=== PATIENT | male | born 1950 | race Caucasian/White ===

== ENCOUNTER 2017-06-06 17:51 | Inpatient (IN) ==
[2017-06-06] MEDS ORDERED: 0.9 % Sodium Chloride 1,000 ML IVC ONE (17:56)
[2017-06-06 18:27] LABS: Hematocrit 27.6 % (37.5-50.1); Hemoglobin 8.6 g/dL (12.9-16.9); Immature Granulocytes % 1.2 % (0-4); Lymphocytes # 0.4 K/mcL (0.6-4.6); Lymphocytes % 3.4 %; Mean Corpuscular HGB Conc 31.2 g/dL (31.6-35.5); Mean Corpuscular Hemoglobin 30.6 pg (28.0-33.3); Mean Corpuscular Volume 98.2 fL (83.0-100.0); Mean Platelet Volume 10.2 fL (9.4-12.4); Monocytes # 0.1 K/mcL (0.0-1.3); Monocytes % 1.2 %; Neutrophils # 10.6 K/mcL (1.6-8.9); Platelet Count 175 K/mcL (140-400); Red Blood Count 2.81 M/mcL (4.19-5.50); Red Cell Distribution Width 14.1 % (11.5-14.5); Segmented Neutrophils % 94.2 %
--- NOTE | 2017-06-06 18:28 | Emergency Department Note ---
Disposition Clinical Impression: Rectal bleeding, Colitis Syncope Qualifiers: Syncope type: unspecified Qualified Code(s): R55 - Syncope and collapse Anemia Qualifiers: Anemia type: unspecified type Qualified Code(s): D64.9 - Anemia, unspecified Disposition: Admitted As Inpatient Condition: Critical Time of Disposition: 19:12 Syncope HPI - General Chief Complaint: ED Syncope Stated Complaint: syncope Time Seen by Provider: 06/06/17 17:52 Source: patient, family Mode of arrival: EMS Limitations: no limitations Nursing Notes Reviewed: Yes Vital Signs Reviewed: Yes - History of Present Illness HPI Narrative: The year-old male with history of ulcerative colitis and atrial fibrillation, arrives [facility] emergency department after having multiple syncopal episodes just prior to arrival to the emergency department. The patient states he has been experiencing multiple episodes of bloody stools and a large amount of blood that came from his rectum earlier today. The patient states that earlier he felt very shaky and weak and had a syncopal episode. The patient did not fall but did not lose consciousness. The patient called EMS at that time for evaluation and EMS noted that when they were transporting the patient to the ambulance he had another episode of syncope. The patient had no seizure-like activity that time and did not urinate on himself and did not bite his tongue. The patient did have some small twitching which is consistent with syncope per EMS. The patient denies any previous history of any episode like this in the past. The patient denies any complaints at this time other than feeling generalized weakness and the bleeding from his rectum. Was initially hypotensive with a systolic in the low 90s. After 1 L fluid his systolic fide to the 130s upon arrival to the emergency department. The patient's heart rate remained in the 60s during the entire encounter. 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 Number of episodes: 2 Duration: second(s) Prodromal Symptoms: lightheaded Witnessed: yes - by other (Family) Context: at rest Injuries Sustained Associated with Event: none Current Symptoms: none History: none Treatments prior to arrival: IV fluids Associated trauma secondary to event: No - Related Data Home Medications Medication Instructions Recorded Confirmed Aspirin Enteric Coated [Aspirin EC] 81 mg PO DAILY 04/12/16 06/06/17 Escitalopram [Lexapro] 20 mg PO DAILY 04/12/16 06/06/17 Simvastatin [Zocor] 10 mg PO HS 04/12/16 06/06/17 clonazePAM [Klonopin] 1 mg PO QID PRN 04/12/16 06/06/17 predniSONE [PredniSONE] 20 mg PO DAILY 05/27/16 06/06/17 Levothyroxine [Synthroid] 25 mcg PO 0630 06/06/17 06/06/17 Mirtazapine [Remeron] 45 mg PO HS 06/06/17 06/06/17 Previous Rx's Medication Instructions Recorded Amiodarone [Cordarone] 200 mg PO DAILY #30 tablet 05/29/16 Allergies Allergy/AdvReac Type Severity Reaction Status Date / Time No Known Allergies Allergy Verified 05/26/16 20:50 All systems ED: reviewed and negative except as stated. Constitutional: Denies: fever, chills, weakness, weight change Eyes: Denies: eye pain, eye discharge, vision change Cardiovascular: Denies: chest pain, palpitations, dyspnea on exertion, edema, syncope Respiratory: Denies: cough, dyspnea, wheezes, hemoptysis, stridor Gastrointestinal: Reports: hematochezia. Denies: abdominal pain, nausea, vomiting, diarrhea, constipation, hematemesis, melena Genitourinary: Denies: urgency, dysuria, frequency, hematuria Musculoskeletal: Denies: back pain, neck pain, arthralgia, myalgia Integumentary: Denies: rash, abrasion, lesions Neurological: Denies: headache, weakness, numbness, paresthesias, confusion, abnormal gait, vertigo Past Medical History - Past Medical History Attestation: Yes The following information was validated with the patient. Source: patient Medical history: Reports: arthritis, atrial fibrillation, GERD, hyperlipidemia, hypertension, kidney stones, osteoporosis, renal disease, other Surgical history: Reports: arthroscopy, herniorrhaphy, orthopedic, other, other Psychiatric history: Reports: anxiety, depression, other - Social History Smoking Status: Never smoker Smokeless Tobacco Status: No Alcohol use: Reports: none Drug use: Reports: none Physical Exam - General Limitations: no limitations General appearance: alert, in no apparent distress - Head Head exam: normocephalic, normal inspection, other (She has multiple abrasions on his face and left side of his face which she states is not new today and states is from working outside yesterday.) - Eye Eye exam: Present: normal appearance, PERRL, EOMI - ENT ENT exam: normal exam, normal oropharynx, mucous membranes moist - Neck Neck exam: Present: normal inspection, full ROM, trachea midline - Chest Chest inspection: Present: normal inspection, symmetric chest wall rise - Respiratory Respiratory exam: Present: normal lung sounds bilaterally - Cardiovascular Cardiovascular exam: Present: regular rate, normal rhythm, normal heart sounds - Abdominal Exam Abdominal exam: Present: soft, Non-Tender. Absent: tenderness, distention, guarding, rebound, rigidity - Extremities Exam Extremities exam: Present: normal inspection, full ROM. Absent: tenderness, pedal edema - Neurological Exam Neurological exam: Present: alert, oriented X3, CN II-XII intact. Absent: motor sensory deficit - Skin Skin exam: Present: warm, dry, intact, normal color Course - Consultations Consultation #1: We spoke with Dr. Packer in surgery/endoscopy who agreed to see the patient. No further Recommendations given at this time. Time: 19:10 Vital Signs Pulse Rate 65 06/06/17 17:53 Respiratory Rate 16 06/06/17 17:53 Blood Pressure 117/66 06/06/17 17:53 O2 Sat by Pulse Oximetry 100 06/06/17 17:53 Temperature 98.2 F 06/07/17 08:47 Pulse Rate 57 06/07/17 08:47 Respiratory Rate 18 06/07/17 08:47 Blood Pressure 114/73 06/07/17 08:47 O2 Sat by Pulse Oximetry 99 06/07/17 08:32 Oxygen Delivery Oxygen Delivery Room Air Syncope - [facility] Narrative Medical decision making narrative: Patient experiencing large amount of red blood around his rectum. With the patient's hypotension and syncope, we elected to perform a blood transfusion at this time. The patient has received 2 L of IV fluids. We spoke with Dr. Packer and endoscopy/surgery will see the patient. After discussing the patient's history and story, we will admit the patient to the ICU. Accepted by Rashi Sánchez NP. Patient agrees to plan. - Lab Data Lab results reviewed: Yes I reviewed the patient's lab results. Result diagrams: 06/07/17 05:29 06/07/17 04:03 Lab Results 09/25/17 09/25/17 09/25/17 Range/Units 18:17 18:17 18:17 WBC 11.3 H (4.3-11.1) K/mcL RBC 2.81 L (4.19-5.50) M/mcL Hgb 8.6 L (12.9-16.9) g/dL Hct 27.6 L (37.5-50.1) % MCV 98.2 (83.0-100.0) fL MCH 30.6 (28.0-33.3) pg MCHC 31.2 L (31.6-35.5) g/dL RDW 14.1 (11.5-14.5) % Plt Count 175 (140-400) K/mcL MPV 10.2 (9.4-12.4) fL Immature Gran % 1.2 (0-4) % Seg Neutrophils % 94.2 % Lymphocytes % 3.4 % Monocytes % 1.2 % Eosinophils % 0.0 % Basophils % 0.0 % Neutrophils # 10.6 H (1.6-8.9) K/mcL Lymphocytes # 0.4 L (0.6-4.6) K/mcL Monocytes # 0.1 (0.0-1.3) K/mcL Eosinophils # 0.0 (0.0-0.6) K/mcL Basophils # 0.0 (0.0-0.2) K/mcL PT (9.4-12.1) Seconds INR APTT (26.0-36.0) Seconds Sodium 139 (136-145) mEq/L Potassium 5.1 H (3.5-4.5) mEq/L Chloride 109 (98-109) mEq/L Carbon Dioxide 23 (19-29) mEq/L BUN 47 H (8-26) mg/dL Creatinine 2.98 H (0.72-1.25) mg/dL Est GFR ( Amer) 26 L (> 60) Est GFR (Non-Af Amer) 21 L (> 60) BUN/Creatinine Ratio 16 (6-26) Glucose 183 H (70-99) mg/dL Calculated Osmolality 305 H (280-300) Calcium 7.9 L (8.6-10.8) mg/dL Total Bilirubin 0.5 (0.2-1.2) mg/dL AST 13 (5-34) Units/L ALT 15 (0-55) Units/L Alkaline Phosphatase 37 L (38-126) Units/L Troponin I 0.01 (0-0.03) ng/mL Serum Total Protein 4.7 L (6.0-8.3) g/dL Albumin 2.8 L (3.5-5.0) g/dL Globulin 1.9 L (2.4-3.5) g/dL Albumin/Globulin Ratio 1.5 (1.1-2.2) Urine Color (Yellow) Urine Clarity (Clear) Urine pH (5.0-8.0) pH Units Ur Specific [place] (1.010-1.025) Urine Protein (Neg-Trace) mg/dL Urine Glucose (UA) (Normal) mg/dL Urine Ketones (Negative) mg/dL Urine Blood (Negative) Urine Nitrite (Negative) Urine Bilirubin (Negative) Urine Urobilinogen (Normal) mg/dL Ur Leukocyte Esterase (Negative) Ur Squamous Epith Cells (None-Few) per lpf Ur Culture Indicated? (NO) Blood Type Antibody Screen Crossmatch 06/06/17 06/06/17 06/06/17 Range/Units 18:17 18:35 18:53 WBC (4.3-11.1) K/mcL RBC (4.19-5.50) M/mcL Hgb (12.9-16.9) g/dL Hct (37.5-50.1) % MCV (83.0-100.0) fL MCH (28.0-33.3) pg MCHC (31.6-35.5) g/dL RDW (11.5-14.5) % Plt Count (140-400) K/mcL MPV (9.4-12.4) fL Immature Gran % (0-4) % Seg Neutrophils % % Lymphocytes % % Monocytes % % Eosinophils % % Basophils % % Neutrophils # (1.6-8.9) K/mcL Lymphocytes # (0.6-4.6) K/mcL Monocytes # (0.0-1.3) K/mcL Eosinophils # (0.0-0.6) K/mcL Basophils # (0.0-0.2) K/mcL PT 10.9 (9.4-12.1) Seconds INR 1.0 APTT 21.5 L (26.0-36.0) Seconds Sodium (136-145) mEq/L Potassium (3.5-4.5) mEq/L Chloride (98-109) mEq/L Carbon Dioxide (19-29) mEq/L BUN (8-26) mg/dL Creatinine (0.72-1.25) mg/dL Est GFR ( Amer) (> 60) Est GFR (Non-Af Amer) (> 60) BUN/Creatinine Ratio (6-26) Glucose (70-99) mg/dL Calculated Osmolality (280-300) Calcium (8.6-10.8) mg/dL Total Bilirubin (0.2-1.2) mg/dL AST (5-34) Units/L ALT (0-55) Units/L Alkaline Phosphatase (38-126) Units/L Troponin I (0-0.03) ng/mL Serum Total Protein (6.0-8.3) g/dL Albumin (3.5-5.0) g/dL Globulin (2.4-3.5) g/dL Albumin/Globulin Ratio (1.1-2.2) Urine Color Yellow (Yellow) Urine Clarity Clear (Clear) Urine pH 6.0 (5.0-8.0) pH Units Ur Specific [place] 1.020 (1.010-1.025) Urine Protein 30 H (Neg-Trace) mg/dL Urine Glucose (UA) 100 H (Normal) mg/dL Urine Ketones Negative (Negative) mg/dL Urine Blood Negative (Negative) Urine Nitrite Negative (Negative) Urine Bilirubin Negative (Negative) Urine Urobilinogen Normal (Normal) mg/dL Ur Leukocyte Esterase Negative (Negative) Ur Squamous Epith Cells Few (None-Few) per lpf Ur Culture Indicated? NO (NO) Blood Type O POSITIVE Antibody Screen NEGATIVE Crossmatch See Detail - EKG Data EKG attestation: Yes I reviewed and interpreted this EKG. EKG results narrative: Rate 61 bpm. WA interval 135 ms. QTc 431 ms. Normal axis. Normal sinus rhythm. No ST elevation or ST depression noted. Attestation Statement - Attestation Attestation: I, Eduardo Diego, examined this patient and my medical decision-making was reviewed with the SERVICE BAR CASHIER/PA/Advanced Practice Nurse/Resident Physician. I agree with the documented findings, disposition and treatment plan as described except to the extent set forth below. 67-year-old male presents to emergency department after a syncopal episode. Patient reports multiple episodes of rectal bleeding. She states she feels weak and fatigued. Denies chest pain or shortness breath. Patient had bright red blood on sheets of emergency department bed. CT scan of the abdomen shows stranding adjacent to the colon and this will be treated as possible colitis. Resident spoke with the endoscopist, Dr. Baker, who agreed with the plan for admission to the ICU and will likely perform a colonoscopy in the morning. Vital signs are stable prior to admission to the hospital.
[2017-06-06 18:37] LABS: Albumin 2.8 g/dL (3.5-5.0); Albumin/Globulin Ratio 1.5 (1.1-2.2); Bilirubin,Total 0.5 mg/dL (0.2-1.2); Calcium 7.9 mg/dL (8.6-10.8); Globulin 1.9 g/dL (2.4-3.5); Potassium 5.1 mEq/L (3.5-4.5); Total Protein 4.7 g/dL (6.0-8.3)
[2017-06-06] MEDS ORDERED: MetroNIDAZOLE 500 MG/100 ML 500 MG/100 ML BAG IVPB ONE (18:48)
[2017-06-06 18:51] LABS: Bilirubin,Urine Negative (Negative); Blood,Urine Negative (Negative); Clarity,Urine Clear (Clear); Color,Urine Yellow (Yellow); Glucose,Urine (UA) 100 mg/dL (Normal); Ketones,Urine Negative (Negative); Leukocyte Esterase,Urine Negative (Negative); Nitrite,Urine Negative (Negative); Protein,Urine 30 mg/dL (Neg-Trace); Urobilinogen,Urine Normal (Normal)
[2017-06-06 18:59] LABS: Squamous Epithelial Cell,Urine Few per lpf (None-Few)
[2017-06-06] MEDS ORDERED: *HR* Morphine 2 MG/ML SYRINGE IVP PRN (19:57)
[2017-06-06] MEDS ORDERED: Naloxone 0.4 MG/ML INJ IVP PRN (19:57)
[2017-06-06] MEDS ORDERED: Ondansetron 4 MG/2 ML VIAL IVP PRN (19:57)
--- NOTE | 2017-06-06 20:17 | Internal Med History&Physical ---
Date of Encounter: 06/06/17 Time of Encounter: 19:45 Assessment and Plan (1) Acute blood loss anemia Current visit: No Status: Acute Secondary to LGIB Surgery consultation requested with Dr. Baker by the ER physician continue to closely monitor H&H q6h patient not on any anticoagulants, will obtain coag profile pt to be transfused one unit PRBC tele monitoring hold aspirin at this time will closely monitor in the ICU protonix gtt Pt has documented history of Ulcerative Colitis, however patient states he was reported to not have any UC during his last colonoscopy a year ago. He also is not on any medications for UC. (2) GI bleed Current visit: No Status: Acute plan as listed above Qualifiers: GI bleed type/associated pathology: unspecified gastrointestinal hemorrhage type Qualified Code(s): K92.2 - Gastrointestinal hemorrhage, unspecified (3) Atrial fibrillation Current visit: Yes Status: Chronic Rate controlled with Amiodarone, will continue ASA for CVA ppx, will hold at this time Qualifiers: Atrial fibrillation type: chronic Qualified Code(s): I48.2 - Chronic atrial fibrillation (4) CKD (chronic kidney disease) Current visit: No Status: Chronic Renal function at baseline Pt's primary nurses medical assistants phlebotomists is Dr. Richardson will continue to monitor renal function Qualifiers: Chronic kidney disease stage: stage 4 (severe) Qualified Code(s): N18.4 - Chronic kidney disease, stage 4 (severe) (5) Sarcoidosis Current visit: No Status: Chronic continue home dose of steroids patient noted to have skin atrophy secondary to chronic steroid use (6) DVT prophylaxis Current visit: No Status: Acute SCD Internal Medicine - H&P: HPI Chief complaint: rectal bleed Admitted From: Home Plans for Post Hospital Care: Home History of present illness: Mr. Blackwood is a 67 year old male with PMH of Afib, Sarcoidosis, HTN, CKD, osteoarthritis, questionable ulcerative colitis who presents to the ER for new onset rectal bleed. Patient states he has been noticing chronic bruising for months now and earlier today had a bowel movement with BRBPR. He states by late this evening, he had had multiple bowel movements with BRBPR and he felt lightheaded due to which he came to the ER. No LOC reported. Pt not on any anticoagulation for Afib. He reports of having a colonoscopy a year ago which was negative for any pathology and no UC was reported. He is currently resting in bed with family present at bedside. He reports history of internal and external hemorrhoids but no prior history of rectal or GI bleeds. He denies any headache, lightheadedness, dizziness, chest pain, sob, abd pain, n/v, fever, or chills at this time. His H&H one month ago was 12.4. Social history: never smoker Code status: Full code Past Med Surg Social Fam HX - Past Medical History Medical history: arthritis, atrial fibrillation, GERD, hyperlipidemia, hypertension, kidney stones, osteoporosis, renal disease, other Psychiatric history: anxiety, depression, other - Past Surgical History Surgical History: arthroscopy, herniorrhaphy, orthopedic, other, other - Social History Smoking Status: Never smoker Smokeless Tobacco Status: No Alcohol use: none Drug use: none - Family History Father Living Status: Hx Family Cardiac Disorders: Yes Hx Family Respiratory Disorders: No Hx Family Cancer: Yes Hx Family GI Disorders: No Hx Family Endocrine Disorder: No Hx Family Neuromuscular Disorders: No Hx Family Neurologic Disorders: No Hx Family HEENT Disorders: No Hx Family Autoimmune Disorders: No Internal Medicine - H&P: Meds Aspirin Enteric Coated [Aspirin EC] 81 mg PO DAILY 04/12/16 [History] Escitalopram [Lexapro] 20 mg PO DAILY 04/12/16 [History] Simvastatin [Zocor] 10 mg PO HS 04/12/16 [History] clonazePAM [Klonopin] 1 mg PO QID PRN 04/12/16 [History] predniSONE [PredniSONE] 20 mg PO DAILY 05/27/16 [History] Amiodarone [Cordarone] 200 mg PO DAILY #30 tablet 05/29/16 [Rx] Levothyroxine [Synthroid] 25 mcg PO 0630 06/06/17 [History] Mirtazapine [Remeron] 45 mg PO HS 06/06/17 [History] 3 Allergy/AdvReac Type Severity Reaction Status Date / Time No Known Allergies Allergy Verified 05/26/16 20:50 All Systems PM: A 10-system review of systems was performed and is negative for pertinent findings except as documented above in the HPI. - Constitutional Constitutional: as per HPI - Constitutional Vitals: Temp Pulse Resp BP Pulse Ox 97.6 F 65 16 114/70 98 06/06/17 17:54 06/06/17 19:09 06/06/17 19:09 06/06/17 19:09 06/06/17 19:09 General appearance: Present: cooperative, A&O X 3 (hard of hearing), pleasant, no acute distress, answers questions appropriately - Head Head exam: Present: atraumatic, normocephalic - Eye Eye exam: Present: conjuntiva pink, sclera anicteric - Respiratory Respiratory exam: Present: CTAB. Absent: respiratory distress, wheezes - Cardiovascular Cardiovascular exam: Present: irregular rhythm, +S1, +S2. Absent: diastolic murmur, gallop, rubs, systolic murmur - GI/Abdominal GI/Abdominal exam: Present: normal bowel sounds, soft, no peritoneal signs. Absent: distended, tenderness - Extremities Exam Extremities exam: Present: warm, radial pulses palpable and symmetrical. Absent : calf tenderness, cyanotic, pedal edema - Neurological Exam Neurological exam: Present: alert, oriented X3 - Psychiatric Psychiatric exam: Present: normal affect, normal mood - Skin Additional comments: diffuse bruising on bilateral upper and lower extremities Internal Med - H&P Results - Labs CBC & Chem 7: 06/06/17 18:17 06/06/17 18:17
[2017-06-06 20:29] LABS: Prothrombin Time 10.9 Seconds (9.4-12.1)
[2017-06-06 20:32] LABS: Activated Partial Thrombo Time 21.5 Seconds (26.0-36.0)
[2017-06-06] MEDS: 0.9 % Sodium Chloride 1,000 ML IVC SCH (21:35)
[2017-06-06] MEDS: Pantoprazole 40 MG in 0.9 % Sodium Chloride Mini Bag 100 ML IVC SCH (21:35)
[2017-06-06] MEDS ORDERED: clonazePAM 1 MG TABLET PO ONE (22:22)
[2017-06-06] MEDS: Mirtazapine 15 MG TABLET PO SCH (22:31)
[2017-06-06] MEDS ORDERED: 0.9 % Sodium Chloride 250 ML ONE (22:50)
[2017-06-07] MEDS: Pantoprazole 40 MG in 0.9 % Sodium Chloride Mini Bag 100 ML IVC SCH ×5 (02:36→22:32)
[2017-06-07] MEDS: MetroNIDAZOLE 500 MG/100 ML 500 MG/100 ML BAG IVPB SCH ×3 (03:06→20:19)
[2017-06-07 04:24] LABS: Calcium 7.4 mg/dL (8.6-10.8); Magnesium 1.7 mg/dL (1.6-2.6); Phosphorous 3.1 mg/dL (2.3-4.7); Potassium 4.5 mEq/L (3.5-4.5)
[2017-06-07 04:30] LABS: Basophils % 0.1 %; Hematocrit 22.8 % (37.5-50.1); Hemoglobin 7.3 g/dL (12.9-16.9); Immature Granulocytes % 1.1 % (0-4); Lymphocytes % 8.9 %; Mean Corpuscular Hemoglobin 30.9 pg (28.0-33.3); Mean Corpuscular Volume 96.6 fL (83.0-100.0); Mean Platelet Volume 10.6 fL (9.4-12.4); Monocytes # 0.5 K/mcL (0.0-1.3); Monocytes % 4.7 %; Neutrophils # 9.3 K/mcL (1.6-8.9); Platelet Count 135 K/mcL (140-400); Red Blood Count 2.36 M/mcL (4.19-5.50); Segmented Neutrophils % 85.2 %
[2017-06-07] MEDS: clonazePAM 1 MG TABLET PO PRN ×2 (05:31→22:32)
[2017-06-07] MEDS: Levothyroxine 25 MCG TABLET PO SCH (05:31)
[2017-06-07 05:39] LABS: Hematocrit 22.6 % (37.5-50.1); Hemoglobin 7.3 g/dL (12.9-16.9)
[2017-06-07] MEDS ORDERED: 0.9 % Sodium Chloride 250 ML ONE (08:08)
[2017-06-07] MEDS: predniSONE 10 MG TABLET PO SCH (08:53)
[2017-06-07] MEDS: *HR* Amiodarone 200 MG TABLET PO SCH (08:53)
--- NOTE | 2017-06-07 10:12 | General Surgery Consult Note ---
<Jessica Moreno - Last Filed: 06/07/17 10:30> Date of Encounter: 06/07/17 Time of Encounter: 09:30 Assessment and Plan (1) Rectal bleeding Current Visit: Yes Status: Acute Patient has no evidence of current or ongoing GI bleeding- suspect bleeding from diverticulum Will advance diet- low residue diet Monitor Hgb/Hct Transfuse as necessary- 2nd unit of PRBC transfusing and ordered per hospitalist Will most likely plan for outpatient follow-up and recommend colonoscopy in approximately [address] Baker No urgent surgical intervention/colonoscopy is indicated at this time Will continue to follow along to monitor for further bleeding (2) Syncope Current Visit: Yes Status: Resolved Qualifiers: Syncope type: unspecified Qualified Code(s): R55 - Syncope and collapse (3) Acute blood loss anemia Current Visit: No Status: Acute Suspect GI bleeding secondary to diverticula of the colon Monitor Hgb/Hct Transfuse PRBC as necessary- 2nd unit of PRBC transfusing (4) CKD (chronic kidney disease) Current Visit: No Status: Chronic Creatinine is stable at baseline Patient follows with Dr. Carbone as an outpatient Qualifiers: Chronic kidney disease stage: stage 4 (severe) Qualified Code(s): N18.4 - Chronic kidney disease, stage 4 (severe) (5) Paroxysmal atrial fibrillation Current Visit: No Status: Chronic Rate controlled Management per medicine service History of Present Illness Consult date: 06/07/17 Reason for consult: other (lower GI bleed) Requesting physician: Lisa Duncan History of present illness: Mr. Blackwood is a very pleasant 67 year old male who presented to the ED last evening after experiencing 3 syncopal episodes. He states that he multiple episodes of bright red blood mixed with diarrhea yesterday prior to the syncopal episodes. He is unable to quantify exactly how much blood due to it being mixed with stool. He denies any associated abdominal pain. Denies any nausea/vomiting. He did experience dizziness and states that he had 3 syncopal episodes prior to arrival to the ED. Denies any shortness of breath of chest pains. He states that his last colonoscopy was approximately [address] Leroy (05/2016 and report states multiple diverticula throughout the entire colon). He does admit to a history of ulcerative colitis but no evidence of UC on his previous scope. He denies any further bleeding per rectum since arrival to the hospital. We have been asked to see and evaluate the patient for endoscopic evaluation. Past Med Surg Social Fam HX - Past Medical History Source: patient, old records reviewed Medical history: arthritis, atrial fibrillation, GERD, hyperlipidemia, hypertension, kidney stones, osteoporosis, renal disease, other (IBS, ulcerative colitis) Psychiatric history: anxiety, depression, other - Past Surgical History Surgical History: arthroscopy, herniorrhaphy (bilateral inguinal hernia repair, umbilical hernia repair), orthopedic, other, other - Social History Smoking Status: Never smoker Smokeless Tobacco Status: No Alcohol use: none Drug use: none Current living situation: Home - Independent Activity Level: Independent ambulation - Family History Father Living Status: Hx Family Cardiac Disorders: Yes Hx Family Respiratory Disorders: No Hx Family Cancer: Yes Hx Family GI Disorders: No Hx Family Endocrine Disorder: No Hx Family Neuromuscular Disorders: No Hx Family Neurologic Disorders: No Hx Family HEENT Disorders: No Hx Family Autoimmune Disorders: No Medications and Allergies Aspirin Enteric Coated [Aspirin EC] 81 mg PO DAILY 04/12/16 [History] Escitalopram [Lexapro] 20 mg PO DAILY 04/12/16 [History] Simvastatin [Zocor] 10 mg PO HS 04/12/16 [History] clonazePAM [Klonopin] 1 mg PO QID PRN 04/12/16 [History] predniSONE [PredniSONE] 20 mg PO DAILY 05/27/16 [History] Amiodarone [Cordarone] 200 mg PO DAILY #30 tablet 05/29/16 [Rx] Levothyroxine [Synthroid] 25 mcg PO 0630 06/06/17 [History] Mirtazapine [Remeron] 45 mg PO HS 06/06/17 [History] 3 Allergy/AdvReac Type Severity Reaction Status Date / Time No Known Allergies Allergy Verified 05/26/16 20:50 Review of Systems All systems PM: reviewed and no additional remarkable complaints except as stated (in the HPI) All systems PM: A 10-system review of systems was performed and is negative for pertinent findings except as documented above in the HPI. General Surgery Exam Initial Vital Signs Pulse Resp BP Pulse Ox 65 16 117/66 100 06/06/17 17:53 06/06/17 17:53 06/06/17 17:53 06/06/17 17:53 - General physical appearance well developed, well nourished, no distress, no pain - Eyes normal ocular movement - ENT normal mucosa, atraumatic, normocephalic - Neck trachea midline - Respiratory normal expansion, normal respiratory effort, clear to auscultation - Cardiovascular Cardiovascular exam: Present: irregular rhythm - Abdomen Abdomen general surgery: Present: bowel sounds present, soft, non tender - Integumentary Integumentary general surgery: Present: warm and dry - Neurologic Present: CN 2-12 grossly intact - Musculoskeletal Present: normal gait, normal posture - Psychiatric Psychiatric general surgery: Present: appropriate, oriented to person, oriented to place, oriented to time, speech is normal, memory intact Exam Initial Vital Signs Pulse Resp BP Pulse Ox 65 16 117/66 100 06/06/17 17:53 06/06/17 17:53 06/06/17 17:53 06/06/17 17:53 Results - Labs 06/07/17 05:29 06/07/17 04:03 Abnormal lab results RBC 2.36 M/mcL (4.19-5.50) L 06/07/17 04:03 Hgb 7.3 g/dL (12.9-16.9) L 06/07/17 05:29 Hct 22.6 % (37.5-50.1) L 06/07/17 05:29 RDW 15.0 % (11.5-14.5) H 06/07/17 04:03 Plt Count 135 K/mcL (140-400) L 06/07/17 04:03 Neutrophils # 9.3 K/mcL (1.6-8.9) H 06/07/17 04:03 APTT 21.5 Seconds (26.0-36.0) L 06/06/17 18:17 Chloride 113 mEq/L (98-109) H 06/07/17 04:03 BUN 42 mg/dL (8-26) H 06/07/17 04:03 Creatinine 2.54 mg/dL (0.72-1.25) H 06/07/17 04:03 Est GFR ( Amer) 31 (> 60) L 06/07/17 04:03 Est GFR (Non-Af Amer) 25 (> 60) L 06/07/17 04:03 Glucose 108 mg/dL (70-99) H 06/07/17 04:03 POC Glucose 117 (58-89) H 06/06/17 21:22 Calculated Osmolality 303 (280-300) H 06/07/17 04:03 Calcium 7.4 mg/dL (8.6-10.8) L 06/07/17 04:03 Alkaline Phosphatase 37 Units/L (38-126) L 06/06/17 18:17 Serum Total Protein 4.7 g/dL (6.0-8.3) L 06/06/17 18:17 Albumin 2.8 g/dL (3.5-5.0) L 06/06/17 18:17 Globulin 1.9 g/dL (2.4-3.5) L 06/06/17 18:17 Urine Protein 30 mg/dL (Neg-Trace) H 06/06/17 18:35 Urine Glucose (UA) 100 mg/dL (Normal) H 06/06/17 18:35 Diabetes panel 06/07/17 Range/Units 04:03 Sodium 141 (136-145) mEq/L Potassium 4.5 (3.5-4.5) mEq/L Chloride 113 H (98-109) mEq/L Carbon Dioxide 23 (19-29) mEq/L BUN 42 H (8-26) mg/dL Creatinine 2.54 H (0.72-1.25) mg/dL Glucose 108 H (70-99) mg/dL Calcium 7.4 L (8.6-10.8) mg/dL Calcium panel 06/07/17 Range/Units 04:03 Calcium 7.4 L (8.6-10.8) mg/dL Phosphorus 3.1 (2.3-4.7) mg/dL Pituitary panel 06/07/17 Range/Units 04:03 Sodium 141 (136-145) mEq/L Potassium 4.5 (3.5-4.5) mEq/L Chloride 113 H (98-109) mEq/L Carbon Dioxide 23 (19-29) mEq/L BUN 42 H (8-26) mg/dL Creatinine 2.54 H (0.72-1.25) mg/dL Glucose 108 H (70-99) mg/dL Calcium 7.4 L (8.6-10.8) mg/dL Adrenal panel 06/07/17 Range/Units 04:03 Sodium 141 (136-145) mEq/L Potassium 4.5 (3.5-4.5) mEq/L Chloride 113 H (98-109) mEq/L Carbon Dioxide 23 (19-29) mEq/L BUN 42 H (8-26) mg/dL Creatinine 2.54 H (0.72-1.25) mg/dL Glucose 108 H (70-99) mg/dL Calcium 7.4 L (8.6-10.8) mg/dL All other labs normal. - Imaging CT scan - abdomen: report reviewed CT scan - pelvis: report reviewed Additional studies: Abdomen/Pelvis CT 06/06/17 17:57 IMPRESSION: Colonic diverticulosis. There is mild pericolic fat stranding adjacent to the lower descending and proximal sigmoid colon suspicious for acute uncomplicated inflammation. Bilateral nephrolithiasis. D/ / Scarlett Palma Cha, MD / Scarlett Palma Cha, MD Interpreting Provider: Scarlett Palma Cha, MD Consult Discharge Plan - Plan Additional Instructions: Low residue diet Referrals: Isaías Kaminski DO [Primary Care Provider] - Julia Baker MD [Partnered Physician] - 06/22/17 9:35 am (hospital follow- up for GI bleed and diverticulosis; discuss colonoscopy for the week of 07/18/17 (8 weeks from hospitalization)) - Attending Attestation For this encounter, I have reviewed the STATIONARY ENGINEER or PA documentation, treatment plan, and medical decision making; and I have had face to face time with this patient. <Julia Baker - Last Filed: 06/07/17 15:03> Date of Encounter: 06/07/17 Time of Encounter: 12:00 Assessment and Plan (1) Anemia Current Visit: Yes Status: Acute patients has been transfused 1 unit prbc currently trend Hb currently asymptomatic, monitor Qualifiers: Other causes of anemia: acute posthemorrhagic Qualified Code(s): D64.9 - Anemia, unspecified (2) Colitis Current Visit: Yes Status: Acute ct scan reads a little inflammation around sigmoid which is very difficult to appreciate on imaging, patient without abdominal pain and wbc wnl. doubt active colitis occuring patient had colonsocopy almost a year ago (3) Rectal bleeding Current Visit: Yes Status: Acute (4) Hypertension Current Visit: Yes Status: Chronic normotensive currently, monitor Qualifiers: Hypertension type: essential hypertension Qualified Code(s): I10 - Essential (primary) hypertension (5) Sarcoidosis Current Visit: No Status: Chronic (6) GI bleed Current Visit: No Status: Acute GIB likely diverticular in nature given brisk and copious amounts, currently seems to have stopped patient asymptomatic currently trend Hb, monitor Qualifiers: GI bleed type/associated pathology: diverticulitis Qualified Code(s): K57.93 - Diverticulitis of intestine, part unspecified, without perforation or abscess with bleeding History of Present Illness History of present illness: Patient began passing blood clots then bright red blood per rectum, copious amounts all day long yesterday. He began having dizziness and was concerned about having syncopal episodes so he came to the ED. He denies any abdominal pain with the episodes. He has have rectal bleeding previously due to diverticular disease but states never to this degree of bleeding. No nausea or emesis. No fevers or chills. Past Med Surg Social Fam HX - Past Medical History Medical history: other (IBS, ulcerative colitis, sarcoidosis) Review of Systems All systems PM: reviewed and no additional remarkable complaints except as stated All systems PM: A 10-system review of systems was performed and is negative for pertinent findings except as documented above in the HPI. General Surgery Exam Initial Vital Signs Pulse Resp BP Pulse Ox 65 16 117/66 100 06/06/17 17:53 06/06/17 17:53 06/06/17 17:53 06/06/17 17:53 - General physical appearance well developed, well nourished, no distress, no pain - Eyes PERRL, normal ocular movement - ENT normal mucosa, normocephalic - Neck trachea midline - Respiratory normal expansion, normal respiratory effort - Cardiovascular Cardiovascular exam: Present: RRR - Abdomen Abdomen general surgery: Present: bowel sounds present, soft, non tender. Absent: distended, guarding, rebound - Integumentary Integumentary general surgery: Present: warm and dry - Neurologic Present: CN 2-12 grossly intact - Musculoskeletal Present: normal gait, normal posture - Psychiatric Psychiatric general surgery: Present: A&Ox3, speech is normal Exam Initial Vital Signs Pulse Resp BP Pulse Ox 65 16 117/66 100 06/06/17 17:53 06/06/17 17:53 06/06/17 17:53 06/06/17 17:53 Results - Labs 06/07/17 05:29 06/07/17 04:03 Abnormal lab results RBC 2.36 M/mcL (4.19-5.50) L 06/07/17 04:03 Hgb 7.3 g/dL (12.9-16.9) L 06/07/17 05:29 Hct 22.6 % (37.5-50.1) L 06/07/17 05:29 RDW 15.0 % (11.5-14.5) H 06/07/17 04:03 Plt Count 135 K/mcL (140-400) L 06/07/17 04:03 Neutrophils # 9.3 K/mcL (1.6-8.9) H 06/07/17 04:03 APTT 21.5 Seconds (26.0-36.0) L 06/06/17 18:17 Chloride 113 mEq/L (98-109) H 06/07/17 04:03 BUN 42 mg/dL (8-26) H 06/07/17 04:03 Creatinine 2.54 mg/dL (0.72-1.25) H 06/07/17 04:03 Est GFR ( Amer) 31 (> 60) L 06/07/17 04:03 Est GFR (Non-Af Amer) 25 (> 60) L 06/07/17 04:03 Glucose 108 mg/dL (70-99) H 06/07/17 04:03 POC Glucose 91 (58-89) H 06/07/17 08:05 Calculated Osmolality 303 (280-300) H 06/07/17 04:03 Calcium 7.4 mg/dL (8.6-10.8) L 06/07/17 04:03 Alkaline Phosphatase 37 Units/L (38-126) L 06/06/17 18:17 Serum Total Protein 4.7 g/dL (6.0-8.3) L 06/06/17 18:17 Albumin 2.8 g/dL (3.5-5.0) L 06/06/17 18:17 Globulin 1.9 g/dL (2.4-3.5) L 06/06/17 18:17 Urine Protein 30 mg/dL (Neg-Trace) H 06/06/17 18:35 Urine Glucose (UA) 100 mg/dL (Normal) H 06/06/17 18:35 Diabetes panel 06/07/17 Range/Units 04:03 Sodium 141 (136-145) mEq/L Potassium 4.5 (3.5-4.5) mEq/L Chloride 113 H (98-109) mEq/L Carbon Dioxide 23 (19-29) mEq/L BUN 42 H (8-26) mg/dL Creatinine 2.54 H (0.72-1.25) mg/dL Glucose 108 H (70-99) mg/dL Calcium 7.4 L (8.6-10.8) mg/dL Calcium panel 06/07/17 Range/Units 04:03 Calcium 7.4 L (8.6-10.8) mg/dL Phosphorus 3.1 (2.3-4.7) mg/dL Pituitary panel 06/07/17 Range/Units 04:03 Sodium 141 (136-145) mEq/L Potassium 4.5 (3.5-4.5) mEq/L Chloride 113 H (98-109) mEq/L Carbon Dioxide 23 (19-29) mEq/L BUN 42 H (8-26) mg/dL Creatinine 2.54 H (0.72-1.25) mg/dL Glucose 108 H (70-99) mg/dL Calcium 7.4 L (8.6-10.8) mg/dL Adrenal panel 06/07/17 Range/Units 04:03 Sodium 141 (136-145) mEq/L Potassium 4.5 (3.5-4.5) mEq/L Chloride 113 H (98-109) mEq/L Carbon Dioxide 23 (19-29) mEq/L BUN 42 H (8-26) mg/dL Creatinine 2.54 H (0.72-1.25) mg/dL Glucose 108 H (70-99) mg/dL Calcium 7.4 L (8.6-10.8) mg/dL All other labs normal. - Imaging CT scan - abdomen: report reviewed, image reviewed CT scan - pelvis: report reviewed, image reviewed - Attending Attestation I have personally performed a face to face evaluation on this patient. I have reviewed and agree with the care plan. History and Exam by me shows:
[2017-06-07] MEDS: 0.9 % Sodium Chloride 1,000 ML IVC SCH (11:56)
--- NOTE | 2017-06-07 19:17 | Electrocardiograph Report ---
[address] [address] Test Date: 2017-06-06 Pat Name: Aneudy Blackwood Department: 103 Room: [facility] Gender: M Campaign Management Specialist: CT : 1950 Requested By: Joe Almeida Order Number: [id number] Reading MD: Jessica Montalvo Measurements Intervals [place] Rate: 61 P: 44 SC: 135 QRS: 5 QRSD: 102 T: 35 QT: 428 QTc: 431 Interpretive Statements SINUS RHYTHM Electronically Signed On 06-07-2017 19:16:02 EDT by Jessica Montalvo
[2017-06-07 19:55] LABS: Hematocrit 29.4 % (37.5-50.1)
[2017-06-07 19:56] LABS: Hemoglobin 9.3 g/dL (12.9-16.9)
--- NOTE | 2017-06-07 22:01 | Internal Med Progress Note ---
Date of Encounter: 06/07/17 Time of Encounter: 11:00 - Assessment and plan (1) Rectal bleeding Current Visit: Yes Status: Acute Assessment and plan: Obtain follow-up hemoglobin, appears stable. No anticoagulation for now. Will eval risk vs benefits if needs. (2) Atrial fibrillation Current Visit: Yes Status: Chronic Assessment and plan: Rate controlled, hold AC. Qualifiers: Atrial fibrillation type: chronic Qualified Code(s): I48.2 - Chronic atrial fibrillation (3) Hypertension Current Visit: Yes Status: Chronic Assessment and plan: Was concern with acute blood loss anemia to give antihyperensive meds. Currently H/H stable and hemodynamically stable as well. No HTN meds listed for home medications. Could be stress related in hospital. Qualifiers: Hypertension type: essential hypertension Qualified Code(s): I10 - Essential (primary) hypertension (4) Syncope Current Visit: Yes Status: Resolved Assessment and plan: Secondary to problem #1. Continue supportive care and monitoring. Qualifiers: Syncope type: unspecified Qualified Code(s): R55 - Syncope and collapse (5) GRACIA (acute kidney injury) Current Visit: No Status: Acute Assessment and plan: Showed gradual improvement in function. Will trend once more. - Subjective Interval history: No acute events overnight. Denies hematochezia, melena, diarrhea/constipation. No n/v, fevers, lightheadedness. Appetite is good. - Constitutional Vitals: Temp Pulse Resp BP Pulse Ox 97.7 F 70 18 135/74 99 06/07/17 18:58 06/07/17 18:58 06/07/17 18:58 06/07/17 18:58 06/07/17 18:58 General appearance: Present: cooperative, A&O X 3 (hard of hearing), pleasant, no acute distress, answers questions appropriately - GI/Abdominal GI/Abdominal exam: Present: normal bowel sounds, soft, no peritoneal signs. Absent: distended, tenderness Internal Medicine: Result - Labs CBC & Chem 7: 06/07/17 19:45 06/07/17 04:03 Labs: Short CBC 06/07/17 06/07/17 06/07/17 Range/Units 04:03 05:29 19:45 WBC 10.9 (4.3-11.1) K/mcL Hgb 7.3 L 7.3 L 9.3 L D (12.9-16.9) g/dL Hct 22.8 L 22.6 L 29.4 L (37.5-50.1) % Plt Count 135 L (140-400) K/mcL Neutrophils # 9.3 H (1.6-8.9) K/mcL BMP 06/07/17 04:03 Sodium 141 Potassium 4.5 Chloride 113 H Carbon Dioxide 23 BUN 42 H Creatinine 2.54 H Glucose 108 H Calcium 7.4 L - ABG Interpretation ABG results: PT/INR, D-dimer PT 10.9 Seconds (9.4-12.1) 06/06/17 18:17 - VTE Reasons for not Prescribing Prophylaxis: Medical contraindication Deep Vein Thrombosis/Pulmonary Embolism Present on Admission: No Consult Discharge Plan - Plan Additional Instructions: Low residue diet Referrals: Julia Baker MD [Partnered Physician] - 06/22/17 9:35 am (hospital follow- up for GI bleed and diverticulosis; discuss colonoscopy for the week of 07/18/17 (8 weeks from hospitalization)) Isaías Kaminski DO [Primary Care Provider] -
[2017-06-07] MEDS: Mirtazapine 15 MG TABLET PO SCH (22:32)
[2017-06-08] MEDS: 0.9 % Sodium Chloride 1,000 ML IVC SCH ×2 (01:20→14:06)
[2017-06-08] MEDS: Pantoprazole 40 MG in 0.9 % Sodium Chloride Mini Bag 100 ML IVC SCH ×2 (02:48→08:05)
[2017-06-08] MEDS: MetroNIDAZOLE 500 MG/100 ML 500 MG/100 ML BAG IVPB SCH (05:13)
[2017-06-08] MEDS: Levothyroxine 25 MCG TABLET PO SCH (05:13)
[2017-06-08 06:19] LABS: Basophils % 0.1 %; Eosinophils % 0.1 %; Hematocrit 27.4 % (37.5-50.1); Hemoglobin 8.6 g/dL (12.9-16.9); Immature Granulocytes % 1.1 % (0-4); Lymphocytes # 1.1 K/mcL (0.6-4.6); Lymphocytes % 13.2 %; Mean Corpuscular HGB Conc 31.4 g/dL (31.6-35.5); Mean Corpuscular Volume 95.5 fL (83.0-100.0); Mean Platelet Volume 10.8 fL (9.4-12.4); Monocytes # 0.5 K/mcL (0.0-1.3); Monocytes % 5.8 %; Neutrophils # 6.3 K/mcL (1.6-8.9); Platelet Count 132 K/mcL (140-400); Red Blood Count 2.87 M/mcL (4.19-5.50); Red Cell Distribution Width 15.9 % (11.5-14.5); Segmented Neutrophils % 79.7 %
[2017-06-08 06:29] LABS: Calcium 8.3 mg/dL (8.6-10.8); Potassium 4.1 mEq/L (3.5-4.5)
[2017-06-08] MEDS: *HR* Amiodarone 200 MG TABLET PO SCH (08:04)
[2017-06-08] MEDS: predniSONE 10 MG TABLET PO SCH (08:04)
[2017-06-08 08:39] LABS: Hematocrit 30.3 % (37.5-50.1); Hemoglobin 9.6 g/dL (12.9-16.9)
--- NOTE | 2017-06-08 11:05 | General Surgery Progress Note ---
<Bernarda Gonzalez - Last Filed: 06/08/17 11:03> Date of Encounter: 06/08/17 Time of Encounter: 10:45 - Assessment and Plan (1) Rectal bleeding Current Visit: Yes Status: Acute Pt reports continued diarrhea and return of BRB per rectum this am. Hgb this am was 9.6. He does report feelings of dizziness when sitting at EOB and standing as well as SOB with activity. -Will order repeat H&H this evening Transfuse PRN per hospitalist -Continue to monitor -Up with assist only -Continue PPI and IV abx -Cotninue low residue diet -No urgent surgical need for intervention/colonoscopy is indicated at this time - Will most likely plan for outpatient follow-up and recommend colonoscopy in approximately [address] Baker (2) Syncope Current Visit: Yes Status: Resolved See above Qualifiers: Syncope type: unspecified Qualified Code(s): R55 - Syncope and collapse Subjective Patient reports: feels better, tolerating liquids well, voiding w/o difficulty, diarrhea, blood in stool, shortness of breath (with activity) Narrative: States continued episodes of diarrhea and bright red blood. He feels dizzy when he stands up. He denies nausea or vomiting. Objective Vital Signs - Last 8 Hours Temp Pulse Resp BP Pulse Ox 06/08/17 07:06 70 06/08/17 06:55 97.6 F 63 17 145/83 100 06/08/17 04:37 97.4 F L 62 19 162/79 100 Intake and Output 06/07/17 06/08/17 06/08/17 23:59 07:59 15:59 Intake Total 320 / 320 1200 / 1200 240 / 240 Balance 320 / 320 1200 / 1200 240 / 240 Intake: IV Fluids 200 / 200 1200 / 1200 0.9 % Sodium Chloride 1,000 ML 1000 / 1000 @ 75 mls/hr IVC .[id number] DO Rx #:[id number] Protonix 40 MG In 0.9 % Sodium 100 / 100 200 / 200 Chloride (Mini-Bag +) 100 ML @ 20 mls/hr IVC .Q5H DO Rx#: [id number] Cipro Premix 400 MG/200 ML 400 0 / 0 mg In 200 ml @ 200 mls/hr IVPB Q12HR DO Rx#:[id number] Flagyl Premix 500 MG/100 ML 500 100 / 100 mg In 100 ml @ 100 mls/hr IVPB Q8H [facility] Rx#:[id number] Oral 120 / 120 240 / 240 Other: Meal Dinner Breakfast Percent of Meal Consumed 100% 100% Stool Size Moderate Stool Consistency soft Stool Characteristics Normal for Patient Stool Color Brown Bright Red Blood # Bowel Movements 1 Weight 84.822 kg Blood Glucose* 103 Patient Weight 06/08/17 23:59 Weight 84.822 kg - General physical appearance no distress, no pain - ENT atraumatic, normocephalic - Neck Neck exam: trachea midline - Respiratory normal expansion, normal respiratory effort, clear to auscultation - Cardiovascular Cardiovascular exam: Present: RRR - Abdomen Abdomen: Present: bowel sounds present, soft, non tender - Integumentary no rash - Neurologic CN 2-12 grossly intact, normal coordination - Musculoskeletal normal gait, normal posture - Psychiatric oriented to time, oriented to person, oriented to place, speech is normal, memory intact - Labs 06/08/17 08:23 06/08/17 05:20 Diabetes panel 06/08/17 Range/Units 05:20 Sodium 144 (136-145) mEq/L Potassium 4.1 (3.5-4.5) mEq/L Chloride 113 H (98-109) mEq/L Carbon Dioxide 27 (19-29) mEq/L BUN 34 H (8-26) mg/dL Creatinine 2.58 H (0.72-1.25) mg/dL Glucose 86 (70-99) mg/dL Calcium 8.3 L (8.6-10.8) mg/dL Calcium panel 06/08/17 Range/Units 05:20 Calcium 8.3 L (8.6-10.8) mg/dL Pituitary panel 06/08/17 Range/Units 05:20 Sodium 144 (136-145) mEq/L Potassium 4.1 (3.5-4.5) mEq/L Chloride 113 H (98-109) mEq/L Carbon Dioxide 27 (19-29) mEq/L BUN 34 H (8-26) mg/dL Creatinine 2.58 H (0.72-1.25) mg/dL Glucose 86 (70-99) mg/dL Calcium 8.3 L (8.6-10.8) mg/dL Adrenal panel 06/08/17 Range/Units 05:20 Sodium 144 (136-145) mEq/L Potassium 4.1 (3.5-4.5) mEq/L Chloride 113 H (98-109) mEq/L Carbon Dioxide 27 (19-29) mEq/L BUN 34 H (8-26) mg/dL Creatinine 2.58 H (0.72-1.25) mg/dL Glucose 86 (70-99) mg/dL Calcium 8.3 L (8.6-10.8) mg/dL - VTE Reasons for not Prescribing Prophylaxis: Medical contraindication Deep Vein Thrombosis/Pulmonary Embolism Present on Admission: No Consult Discharge Plan - Plan Additional Instructions: Low residue diet Referrals: Julia Baker MD [Partnered Physician] - 06/22/17 9:35 am (hospital follow- up for GI bleed and diverticulosis; discuss colonoscopy for the week of 07/18/17 (8 weeks from hospitalization)) Isaías Kaminski DO [Primary Care Provider] - (web request sent on 06/08/17) <Julia Baker - Last Filed: 06/08/17 17:53> Date of Encounter: 06/08/17 - Assessment and Plan (1) Anemia Current Visit: Yes Status: Acute patients Hb continue to decrease and he has passed more blood, instead of talking to me the hospitalist has called GI to scope the patient. We will sign off at this time. Qualifiers: Other causes of anemia: acute posthemorrhagic Qualified Code(s): D64.9 - Anemia, unspecified (2) Colitis Current Visit: Yes Status: Acute (3) Rectal bleeding Current Visit: Yes Status: Acute (4) Hypertension Current Visit: Yes Status: Chronic Qualifiers: Hypertension type: essential hypertension Qualified Code(s): I10 - Essential (primary) hypertension (5) Sarcoidosis Current Visit: No Status: Chronic (6) GI bleed Current Visit: No Status: Acute Qualifiers: GI bleed type/associated pathology: diverticulitis Qualified Code(s): K57.93 - Diverticulitis of intestine, part unspecified, without perforation or abscess with bleeding Objective Vital Signs - Last 8 Hours Temp Pulse Resp BP Pulse Ox 06/08/17 17:11 97.5 F L 79 16 138/74 06/08/17 16:52 98.6 F 69 16 134/68 98 06/08/17 15:30 97.5 F L 77 18 118/70 99 06/08/17 11:10 98.4 F 65 17 125/66 98 Intake and Output 06/08/17 06/08/17 06/08/17 07:59 15:59 23:59 Intake Total 1200 / 1200 1480 / 1480 120 / 120 Balance 1200 / 1200 1480 / 1480 120 / 120 Intake: IV Fluids 1200 / 1200 1000 / 1000 0.9 % Sodium Chloride 1,000 ML 1000 / 1000 1000 / 1000 @ 75 mls/hr IVC .[id number] DO Rx #:[id number] Protonix 40 MG In 0.9 % Sodium 200 / 200 Chloride (Mini-Bag +) 100 ML @ 20 mls/hr IVC .Q5H DO Rx#: [id number] Oral 480 / 480 120 / 120 Blood Product 0 / 0 Rbcs Leuko Poor As-1 Unit 0 / 0 [id number] Other: Meal Lunch Dinner Percent of Meal Consumed 100% 80% Stool Size Moderate Stool Consistency soft Stool Characteristics Normal for Patient Stool Color Brown Bright Red Blood # Bowel Movements 1 Weight 84.822 kg Blood Glucose* 173 Patient Weight 06/08/17 23:59 Weight 84.822 kg - Labs 06/08/17 14:30 06/08/17 05:20 Diabetes panel 06/08/17 Range/Units 05:20 Sodium 144 (136-145) mEq/L Potassium 4.1 (3.5-4.5) mEq/L Chloride 113 H (98-109) mEq/L Carbon Dioxide 27 (19-29) mEq/L BUN 34 H (8-26) mg/dL Creatinine 2.58 H (0.72-1.25) mg/dL Glucose 86 (70-99) mg/dL Calcium 8.3 L (8.6-10.8) mg/dL Calcium panel 06/08/17 Range/Units 05:20 Calcium 8.3 L (8.6-10.8) mg/dL Pituitary panel 06/08/17 Range/Units 05:20 Sodium 144 (136-145) mEq/L Potassium 4.1 (3.5-4.5) mEq/L Chloride 113 H (98-109) mEq/L Carbon Dioxide 27 (19-29) mEq/L BUN 34 H (8-26) mg/dL Creatinine 2.58 H (0.72-1.25) mg/dL Glucose 86 (70-99) mg/dL Calcium 8.3 L (8.6-10.8) mg/dL Adrenal panel 06/08/17 Range/Units 05:20 Sodium 144 (136-145) mEq/L Potassium 4.1 (3.5-4.5) mEq/L Chloride 113 H (98-109) mEq/L Carbon Dioxide 27 (19-29) mEq/L BUN 34 H (8-26) mg/dL Creatinine 2.58 H (0.72-1.25) mg/dL Glucose 86 (70-99) mg/dL Calcium 8.3 L (8.6-10.8) mg/dL
[2017-06-08 13:59] LABS: Hematocrit 24.1 % (37.5-50.1); Hemoglobin 7.4 g/dL (12.9-16.9)
[2017-06-08] MEDS: metroNIDAZOLE 500 MG TABLET PO SCH ×2 (14:07→21:38)
--- NOTE | 2017-06-08 14:45 | Internal Med Progress Note ---
Date of Encounter: 06/08/17 Time of Encounter: 14:42 - Assessment and plan (1) Acute blood loss anemia Current Visit: No Status: Acute Assessment and plan: This case with gastroenterology they are now consulted. Bowel prep today and colonoscopy tomorrow. H&H every 6 will transfuse now and monitor. He is not tachycardic nor hypotensive. (2) Rectal bleeding Current Visit: Yes Status: Acute Assessment and plan: Will eval risk vs benefits if needs. Follow-up hemoglobin has showed an acute drop. External hemorrhoids can be less likely at this point, diverticulosis still possible cause. He is hemodynamically stable. Hhe is not on any anticoagulation. GI was consulted and agreed to do colonoscopy tomorrow so we will get a bowel prep today (3) Hypertension Current Visit: Yes Status: Chronic Qualifiers: Hypertension type: essential hypertension Qualified Code(s): I10 - Essential (primary) hypertension (4) Atrial fibrillation Current Visit: Yes Status: Chronic Assessment and plan: He is currently on amiodarone rate is regular, and he is not on any anticoagulants. Qualifiers: Atrial fibrillation type: chronic Qualified Code(s): I48.2 - Chronic atrial fibrillation (5) GRACIA (acute kidney injury) Current Visit: No Status: Acute Assessment and plan: Stable (6) Syncope Current Visit: Yes Status: Resolved Qualifiers: Syncope type: unspecified Qualified Code(s): R55 - Syncope and collapse - Subjective Interval history: Patient states she is having bloody diarrhea again, also admits to dizziness. No hematemesis, no melena. Hemoglobin has dropped acutely from 9.612 hours ago and now is 7.4 this afternoon. He is hemodynamically stable currently he denies chest pain or shortness of breath - Constitutional Vitals: Temp Pulse Resp BP Pulse Ox 98.4 F 65 17 125/66 98 06/08/17 11:10 06/08/17 11:10 06/08/17 11:10 06/08/17 11:10 06/08/17 11:10 General appearance: Present: cooperative, A&O X 3 (hard of hearing), pleasant, no acute distress, answers questions appropriately - Respiratory Respiratory exam: Present: CTAB. Absent: accessory muscle use, rales, rhonchi, wheezes - Cardiovascular Cardiovascular exam: Present: RRR, +S1, +S2. Absent: diastolic murmur, gallop, rubs, systolic murmur - GI/Abdominal GI/Abdominal exam: Present: normal bowel sounds, soft, no peritoneal signs. Absent: distended, tenderness - Extremities Exam Extremities exam: Present: warm, radial pulses palpable and symmetrical. Absent : calf tenderness, cyanotic, pedal edema Internal Medicine: Result - Labs CBC & Chem 7: 06/08/17 13:34 06/08/17 05:20 Labs: Short CBC 06/07/17 06/08/17 06/08/17 Range/Units 19:45 05:20 08:23 WBC 8.0 (4.3-11.1) K/mcL Hgb 9.3 L D 8.6 L 9.6 L (12.9-16.9) g/dL Hct 29.4 L 27.4 L 30.3 L (37.5-50.1) % Plt Count 132 L (140-400) K/mcL Neutrophils # 6.3 (1.6-8.9) K/mcL 06/08/17 Range/Units 13:34 WBC (4.3-11.1) K/mcL Hgb 7.4 L D (12.9-16.9) g/dL Hct 24.1 L (37.5-50.1) % Plt Count (140-400) K/mcL Neutrophils # (1.6-8.9) K/mcL BMP 06/08/17 05:20 Sodium 144 Potassium 4.1 Chloride 113 H Carbon Dioxide 27 BUN 34 H Creatinine 2.58 H Glucose 86 Calcium 8.3 L - ABG Interpretation ABG results: PT/INR, D-dimer PT 10.9 Seconds (9.4-12.1) 06/06/17 18:17 - VTE Reasons for not Prescribing Prophylaxis: Medical contraindication Deep Vein Thrombosis/Pulmonary Embolism Present on Admission: No Consult Discharge Plan - Plan Additional Instructions: Low residue diet Referrals: Julia Baker MD [Partnered Physician] - 06/22/17 9:35 am (hospital follow- up for GI bleed and diverticulosis; discuss colonoscopy for the week of 07/18/17 (8 weeks from hospitalization)) Isaías Kaminski DO [Primary Care Provider] - (web request sent on 06/08/17)
[2017-06-08 14:56] LABS: Basophils % 0.1 %; Hematocrit 22.4 % (37.5-50.1); Immature Granulocytes % 1.2 % (0-4); Lymphocytes # 0.4 K/mcL (0.6-4.6); Lymphocytes % 3.1 %; Mean Corpuscular HGB Conc 31.3 g/dL (31.6-35.5); Mean Corpuscular Hemoglobin 30.4 pg (28.0-33.3); Mean Corpuscular Volume 97.4 fL (83.0-100.0); Mean Platelet Volume 10.7 fL (9.4-12.4); Monocytes # 0.2 K/mcL (0.0-1.3); Monocytes % 1.8 %; Neutrophils # 10.6 K/mcL (1.6-8.9); Platelet Count 140 K/mcL (140-400); Segmented Neutrophils % 93.8 %
[2017-06-08] MEDS ORDERED: SODIUM CHLORIDE/NAHCO3/KCL/PEG 4,000 ML SOLN.RECON PO ONE (14:56)
[2017-06-08] MEDS ORDERED: 0.9 % Sodium Chloride 250 ML ONE (16:51)
[2017-06-08] MEDS ORDERED: 0.9 % Sodium Chloride 500 ML ONE (19:48)
[2017-06-08] MEDS: Mirtazapine 15 MG TABLET PO SCH (21:37)
[2017-06-08] MEDS: clonazePAM 1 MG TABLET PO PRN (21:37)
[2017-06-09 02:47] LABS: Basophils % 0.1 %; Hematocrit 22.6 % (37.5-50.1); Hemoglobin 7.3 g/dL (12.9-16.9); Immature Granulocytes % 1.8 % (0-4); Lymphocytes # 0.9 K/mcL (0.6-4.6); Lymphocytes % 9.7 %; Mean Corpuscular HGB Conc 32.3 g/dL (31.6-35.5); Mean Corpuscular Hemoglobin 30.3 pg (28.0-33.3); Mean Corpuscular Volume 93.8 fL (83.0-100.0); Mean Platelet Volume 10.2 fL (9.4-12.4); Monocytes # 0.5 K/mcL (0.0-1.3); Monocytes % 5.6 %; Neutrophils # 7.9 K/mcL (1.6-8.9); Platelet Count 120 K/mcL (140-400); Red Blood Count 2.41 M/mcL (4.19-5.50); Red Cell Distribution Width 16.3 % (11.5-14.5); Segmented Neutrophils % 82.8 %
[2017-06-09 03:00] LABS: Calcium 7.5 mg/dL (8.6-10.8); Potassium 4.4 mEq/L (3.5-4.5)
[2017-06-09] MEDS: Levothyroxine 25 MCG TABLET PO SCH (06:32)
[2017-06-09] MEDS: 0.9 % Sodium Chloride 1,000 ML IVC SCH (06:33)
[2017-06-09 08:41] LABS: Hematocrit 25.4 % (37.5-50.1); Hemoglobin 8.1 g/dL (12.9-16.9)
[2017-06-09] MEDS: metroNIDAZOLE 500 MG TABLET PO SCH ×2 (10:28→17:28)
[2017-06-09] MEDS: predniSONE 10 MG TABLET PO SCH (10:28)
[2017-06-09] MEDS: *HR* Amiodarone 200 MG TABLET PO SCH (10:29)
[2017-06-09 14:58] LABS: Hematocrit 25.5 % (37.5-50.1); Hemoglobin 8.3 g/dL (12.9-16.9)
--- NOTE | 2017-06-09 16:09 | Discharge Summary ---
Date of Encounter: 06/09/17 Time of Encounter: 16:09 - Discharge Diagnosis (1) Acute blood loss anemia Priority: Primary Status: Resolved (2) Rectal bleeding Priority: Secondary Status: Resolved (3) Hypertension Priority: Secondary Status: Chronic Qualifiers: Hypertension type: essential hypertension Qualified Code(s): I10 - Essential (primary) hypertension (4) Atrial fibrillation Priority: Secondary Status: Chronic Qualifiers: Atrial fibrillation type: chronic Qualified Code(s): I48.2 - Chronic atrial fibrillation (5) GRACIA (acute kidney injury) Priority: Secondary Status: Acute (6) Syncope Priority: Secondary Status: Resolved Qualifiers: Syncope type: unspecified Qualified Code(s): R55 - Syncope and collapse - Discharge Medications Home Medications: Aspirin Enteric Coated [Aspirin EC] 81 mg PO DAILY 04/12/16 [History] Escitalopram [Lexapro] 20 mg PO DAILY 04/12/16 [History] Simvastatin [Zocor] 10 mg PO HS 04/12/16 [History] clonazePAM [Klonopin] 1 mg PO QID PRN 04/12/16 [History] predniSONE [PredniSONE] 20 mg PO DAILY 05/27/16 [History] Amiodarone [Cordarone] 200 mg PO DAILY #30 tablet 05/29/16 [Rx] Levothyroxine [Synthroid] 25 mcg PO 0630 06/06/17 [History] Mirtazapine [Remeron] 45 mg PO HS 06/06/17 [History] Allergies/Adverse Reactions: 3 Allergy/AdvReac Type Severity Reaction Status Date / Time No Known Allergies Allergy Verified 05/26/16 20:50 Date of admission: 06/06/17 19:45 Primary care physician: Isaías Kaminski Consults: 06/06/17 19:59 Consult to Surgery [CONS] Routine Consulting Provider: Surgery [facility] Reason for Consult: LGIB Call Completed: Yes 06/08/17 14:38 Consult to Gastroenterology [CONS] Routine Consulting Provider: Gastroenterology Birgit Reason for Consult: LGIB Call Completed: Yes Discharging clinician: Manuel Crow - Patient Status Disposition: Home, Self-Care Condition: Critical Functional capacity at discharge: independent ambulation Overall status at discharge: patient is progressing back to baseline - Discharge Instructions Instructions: Syncope (DC), Anemia (GEN), Acute Kidney Injury (DC) Follow Up With: Julia Baker MD [Partnered Physician] - 06/22/17 9:35 am (hospital follow- up for GI bleed and diverticulosis; discuss colonoscopy for the week of 07/18/17 (8 weeks from hospitalization)) Isaías Kaminski DO [Primary Care Provider] - (web request sent on 06/08/17) Additional Instructions: Low residue diet - Diet and Activity Activity: increase activity as tolerated Interval History: Mr. Blackwood is a 67 year old male with PMH of Afib, Sarcoidosis, HTN, CKD, osteoarthritis, questionable ulcerative colitis who presents to the ER for new onset rectal bleed. Patient states he has been noticing chronic bruising for months now and earlier today had a bowel movement with BRBPR. He states by late this evening, he had had multiple bowel movements with BRBPR and he felt lightheaded due to which he came to the ER. No LOC reported. Pt not on any anticoagulation for Afib. He reports of having a colonoscopy a year ago which was negative for any pathology and no UC was reported. He is currently resting in bed with family present at bedside. He reports history of internal and external hemorrhoids but no prior history of rectal or GI bleeds. He denies any headache, lightheadedness, dizziness, chest pain, sob, abd pain, n/v, fever, or chills at this time. Hospital course: He was monitored and given a total of 4 units of PRBCs which would alleviate his symptomatic anemia. Hemoglobin improved to 9. He stated BRBPR improved throughout his stay. Surgery was consulted and since he was hemodynamically stable there was no intervention needed. There was a sudden drop in hemoglobin to 7.0, most likely hemodilutional. After his 4th transfusion anemia remained stable and trended back upwards. He no longer had bloody BM and was feeling much better. Based on his clinical presentation and prior findings on EGD, it was most likely due to diverticular bleed. He was discharged home in stable condition. He was instructed to get a follow-up CBC in 3 days, and to follow- up with Surgery in 2-3 weeks. - Time Spent with Patient Total time spent providing and/or coordinating discharge services: Less than 30 minutes - Constitutional Vitals: Temp Pulse Resp BP Pulse Ox 97.5 F L 66 16 137/79 100 06/09/17 11:46 06/09/17 11:46 06/09/17 11:46 06/09/17 11:46 06/09/17 11:46 General appearance: Present: cooperative, A&O X 3 (hard of hearing), pleasant, no acute distress, answers questions appropriately - Head Head exam: Present: atraumatic, normocephalic - Neck Neck exam general surgery: Present: supple, trachea midline. Absent: lymphadenopathy - Respiratory Respiratory exam: Present: CTAB. Absent: accessory muscle use, rales, rhonchi, wheezes - Cardiovascular Cardiovascular exam: Present: RRR, +S1, +S2. Absent: diastolic murmur, gallop, rubs, systolic murmur - GI/Abdominal GI/Abdominal exam: Present: normal bowel sounds, soft, no peritoneal signs. Absent: distended, tenderness - Rectal Rectal exam: Present: normal inspection. Absent: black stool, fecal impaction, hemorrhoids, laceration - Extremities Exam Extremities exam: Present: warm, radial pulses palpable and symmetrical. Absent : calf tenderness, cyanotic, pedal edema - VTE Reasons for not Prescribing Prophylaxis: Medical contraindication Deep Vein Thrombosis/Pulmonary Embolism Present on Admission: No
[2017-06-09 16:58] VITALS: BP 146/76
[2017-06-09] MEDS ORDERED: FLUARIX QUAD 2017-18 36MOS UP/PF 0.5 ML SYRINGE IM ONE (17:01)
== END 2017-06-09 17:48 | disposition home or self-care (01) | DRG 378 ==
LOC: EMEROO 17:51 → SUATTDRO 19:45 → ICNU 19:45 → 2ANU 06-07 06:52
PROVIDERS: ADMIT Internal Medicine; ATTEND Student in an Organized Health Care Education/Training Program

== ENCOUNTER 2019-01-16 09:11 | Inpatient (IN) ==
[2019-01-16] MEDS ORDERED: Ondansetron 4 MG/2 ML VIAL IVP ONE (09:48)
[2019-01-16] MEDS ORDERED: Pantoprazole 40 MG VIAL IVP ONE (09:48)
[2019-01-16] MEDS ORDERED: 0.9 % Sodium Chloride 1,000 ML IVC ONE (09:48)
--- NOTE | 2019-01-16 10:38 | Emergency Department Note ---
Disposition Clinical Impression: GI bleed, Diverticulitis Disposition: Admitted As Inpatient Condition: Good GI Bleed HPI - General Chief complaint: ED GI Bleed Stated complaint: rectal bleeding Time Seen by Provider: 01/16/19 09:24 Source: patient, family Mode of arrival: private vehicle Limitations: no limitations Nursing Notes Reviewed: Yes Vital Signs Reviewed: Yes - History of Present Illness Pt Subjective Complaint: gross hematochezia Onset (ago): Just [employer]TE[employer] Number of episodes: 2 Consistency: constant Severity: mild Improves with: nothing Worsens with: nothing Context: history of GI bleed (2 years ago - "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 Denies: nausea, vomiting, epistaxis, fever, chills, headaches, loss of appetite, malaise, easy bruising, rash, other bleeding source, shortness of breath, syncope/near- syncope, weakness Treatments Prior to Arrival: none - Related Data Home Medications Medication Instructions Recorded Confirmed Aspirin Enteric Coated [Aspirin EC] 81 mg PO DAILY 04/12/16 01/16/19 Escitalopram [Lexapro] 20 mg PO DAILY 04/12/16 08/01/17 Simvastatin [Zocor] 10 mg PO HS 04/12/16 01/16/19 clonazePAM [Klonopin] 1 mg PO QID PRN 04/12/16 01/16/19 predniSONE [PredniSONE] 12 mg PO DAILY 05/27/16 01/16/19 Levothyroxine [Synthroid] 25 mcg PO 0630 06/06/17 01/16/19 Mirtazapine [Remeron] 45 mg PO HS 06/06/17 01/16/19 Cholecalciferol (Vitamin D3) 5,000 unit PO DAILY 06/16/17 01/16/19 [Vitamin D3] Previous Rx's Medication Instructions Recorded Amiodarone [Cordarone] 200 mg PO DAILY #30 tablet 05/29/16 Allergies Allergy/AdvReac Type Severity Reaction Status Date / Time No Known Allergies Allergy Verified 08/01/17 13:59 All systems ED: reviewed and negative except as stated. Review of Systems: As Per HPI Constitutional: Denies: fever, chills, weakness, weight change, night sweats Eyes: Denies: vision change Cardiovascular: Denies: chest pain, palpitations, dyspnea on exertion, orthopnea, edema, syncope Respiratory: Denies: dyspnea Gastrointestinal: Reports: as per HPI, abdominal pain, hematochezia. Denies: nausea, vomiting, constipation, hematemesis, melena Genitourinary: Denies: urgency, dysuria, frequency, hematuria Musculoskeletal: Denies: back pain, neck pain, joint swelling, arthralgia Integumentary: Denies: rash, lesions Neurological: Denies: weakness, numbness, paresthesias, confusion, vertigo Endocrine: Reports: fatigue Hematological/Lymphatic: Denies: easy bleeding, easy bruising Past Medical History - Past Medical History Attestation: Yes The following information was validated with the patient. Source: patient Medical history: Reports: atrial fibrillation, GI bleed, hyperlipidemia, thyroid disease Surgical history: Reports: arthroscopy, herniorrhaphy, orthopedic, other, other Psychiatric history: Reports: anxiety, depression, other - Social History Smoking Status: Never smoker Smokeless Tobacco Status: No Alcohol use: Reports: none Drug use: Reports: none Physical Exam - General Limitations: no limitations General appearance: alert, in no apparent distress - Head Head exam: atraumatic, normocephalic, normal inspection - Eye Eye exam: Present: normal appearance. Absent: scleral icterus, conjunctival injection, periorbital swelling - ENT ENT exam: mucous membranes moist - Neck Neck exam: Present: normal inspection, full ROM, trachea midline. Absent: meningismus - Chest Chest inspection: Present: normal inspection - Respiratory Respiratory exam: Present: normal lung sounds bilaterally. Absent: respiratory distress - Cardiovascular Cardiovascular exam: Present: regular rate, normal rhythm, normal heart sounds - Abdominal Exam Abdominal exam: Present: soft, Non-Tender, normal bowel sounds. Absent: distention, guarding, rebound, rigidity, mass - Rectal Exam Head Bucker present during exam: Yes (CHOCO Salas) Rectal exam: Present: decreased rectal tone, bloody stool. Absent: fecal impaction, hemorrhoids, mass, tenderness - Extremities Exam Extremities exam: Present: normal inspection, normal capillary refill. Absent: pedal edema - Expanded Lower Extremity Exam Gait: observed and normal - Back Exam Back exam: Present: normal inspection - Neurological Exam Neurological exam: Present: alert, oriented X3, CN II-XII intact - Psychiatric Psychiatric exam: Present: normal affect, normal mood - Skin Skin exam: Present: warm, intact, normal color, diaphoresis Course Course Narrative: Patient presents for evaluation of lower GI bleed that began approximately one hour prior to arrival. He states that he rode a lawnmower for about eight hours yesterday and was feeling fine and this morning he got up and felt some mild cramps in his lower abdomen. He noticed bright red blood dripping into the toilet and then continuing to dripping onto his shorts. He denies recent trauma. States that he has had GI bleeding before, about two years ago and had a scope done. He was told that the lining of his rectum is very thin due to steroid use for sarcoidosis and that he had some internal hemorrhoids. He denies recent surgeries, procedures or febrile illnesses. He takes an aspirin daily. Last dose was last night. He is not anticoagulated. He takes amiodarone for Paroxysmal atrial fibrillation. Patient appears uncomfortable but nontoxic. He is diaphoretic, not pale. Skin is warm. Abdomen is soft and nontender. On rectal exam, he has a moderate amount of bright red blood along with a few small clots. Very little stool. Two large-bore IVs labs, fluids and meds ordered. - Reevaluation(s) Reevaluation #1: Called by tech to return to room. Patient reports that he almost passed out. Nurse states that he had a large, bloody bowel movement and then stood up to get back in bed. He became very diaphoretic, nauseated, and nearly fainted. He was assisted back into bed. BP re-check is in the 70's / 40's. He is still A&O x 3, but states that he feels weak all over. Additional fluids ordered, Blood bank was contacted to change T&S order to T&C. Case discussed with Dr. Terrazas. He has had face to face time with the patient and agrees with the assessment and plan. Time: 10:14 - Consultations Consultation #1: Blood bank called to change order from T&S to T&C. 2 Units PRBC's ordered. Time: 10:14 Time: 10:28 Vital Signs Temperature 97.8 F 01/16/19 09:18 Pulse Rate 79 01/16/19 09:18 Respiratory Rate 14 01/16/19 09:18 Blood Pressure 128/79 01/16/19 09:18 O2 Sat by Pulse Oximetry 97 01/16/19 09:18 Temperature 97.5 F L 01/17/19 14:06 Pulse Rate 66 01/17/19 14:06 Respiratory Rate 15 01/17/19 14:06 Blood Pressure 115/65 01/17/19 14:06 O2 Sat by Pulse Oximetry 98 01/17/19 14:06 Oxygen Delivery Oxygen Delivery Room Air GI Bleed - Lab Data Result diagrams: 01/17/19 10:20 01/17/19 05:23 Lab Results 01/16/19 01/16/19 01/16/19 Range/Units 10:18 10:22 10:22 WBC 10.0 (4.3-11.1) K/mcL RBC 3.95 L (4.19-5.50) M/mcL Hgb 12.7 L (12.9-16.9) g/dL Hct 39.0 (37.5-50.1) % MCV 98.7 (83.0-100.0) fL MCH 32.2 (28.0-33.3) pg MCHC 32.6 (31.6-35.5) g/dL RDW 13.3 (11.5-14.5) % Plt Count 175 (140-400) K/mcL MPV 10.8 (9.4-12.4) fL Immature Gran % 0.4 (0-4) % Seg Neutrophils % 67.5 % Lymphocytes % 21.7 % Monocytes % 9.2 % Eosinophils % 1.0 % Basophils % 0.2 % Neutrophils # 6.8 (1.6-8.9) K/mcL Lymphocytes # 2.2 (0.6-4.6) K/mcL Monocytes # 0.9 (0.0-1.3) K/mcL Eosinophils # 0.1 (0.0-0.6) K/mcL Basophils # 0.0 (0.0-0.2) K/mcL PT 10.4 (9.4-12.1) Seconds INR 0.9 APTT 29.4 (26.0-36.0) Seconds Sodium (136-145) mEq/L Potassium (3.5-5.1) mEq/L Chloride (98-107) mEq/L Carbon Dioxide (23-29) mEq/L BUN (8-23) mg/dL Creatinine (0.70-1.30) mg/dL Est GFR ( Amer) (> 60) Est GFR (Non-Af Amer) (> 60) BUN/Creatinine Ratio (6-26) Glucose (70-105) mg/dL Calculated Osmolality (280-300) Calcium (8.6-10.3) mg/dL Magnesium (1.6-2.6) mg/dL Total Bilirubin (0.3-1.0) mg/dL AST (13-39) Units/L ALT (7-52) Units/L Alkaline Phosphatase (34-104) Units/L Troponin I (< 0.04) ng/mL Serum Total Protein (6.4-8.9) g/dL Albumin (3.5-5.7) g/dL Globulin (2.4-3.5) g/dL Albumin/Globulin Ratio (1.1-2.2) Stool Occult Blood Positive A (Negative) Blood Type Antibody Screen Crossmatch 01/16/19 01/16/19 Range/Units 10:22 10:22 WBC (4.3-11.1) K/mcL RBC (4.19-5.50) M/mcL Hgb (12.9-16.9) g/dL Hct (37.5-50.1) % MCV (83.0-100.0) fL MCH (28.0-33.3) pg MCHC (31.6-35.5) g/dL RDW (11.5-14.5) % Plt Count (140-400) K/mcL MPV (9.4-12.4) fL Immature Gran % (0-4) % Seg Neutrophils % % Lymphocytes % % Monocytes % % Eosinophils % % Basophils % % Neutrophils # (1.6-8.9) K/mcL Lymphocytes # (0.6-4.6) K/mcL Monocytes # (0.0-1.3) K/mcL Eosinophils # (0.0-0.6) K/mcL Basophils # (0.0-0.2) K/mcL PT (9.4-12.1) Seconds INR APTT (26.0-36.0) Seconds Sodium 139 (136-145) mEq/L Potassium 5.0 (3.5-5.1) mEq/L Chloride 108 H (98-107) mEq/L Carbon Dioxide 24 (23-29) mEq/L BUN 32 H (8-23) mg/dL Creatinine 2.58 H (0.70-1.30) mg/dL Est GFR ( Amer) 30 L (> 60) Est GFR (Non-Af Amer) 25 L (> 60) BUN/Creatinine Ratio 12 (6-26) Glucose 132 H (70-105) mg/dL Calculated Osmolality 297 (280-300) Calcium 8.9 (8.6-10.3) mg/dL Magnesium 2.3 (1.6-2.6) mg/dL Total Bilirubin 0.5 (0.3-1.0) mg/dL AST 12 L (13-39) Units/L ALT 7 (7-52) Units/L Alkaline Phosphatase 45 (34-104) Units/L Troponin I < 0.03 (< 0.04) ng/mL Serum Total Protein 5.5 L (6.4-8.9) g/dL Albumin 3.7 (3.5-5.7) g/dL Globulin 1.8 L (2.4-3.5) g/dL Albumin/Globulin Ratio 2.1 (1.1-2.2) Stool Occult Blood (Negative) Blood Type O POSITIVE Antibody Screen NEGATIVE Crossmatch See Detail
[2019-01-16 10:42] LABS: Basophils % 0.2 %; Eosinophils # 0.1 K/mcL (0.0-0.6); Hemoglobin 12.7 g/dL (12.9-16.9); Immature Granulocytes % 0.4 % (0-4); Lymphocytes # 2.2 K/mcL (0.6-4.6); Lymphocytes % 21.7 %; Mean Corpuscular HGB Conc 32.6 g/dL (31.6-35.5); Mean Corpuscular Hemoglobin 32.2 pg (28.0-33.3); Mean Corpuscular Volume 98.7 fL (83.0-100.0); Mean Platelet Volume 10.8 fL (9.4-12.4); Monocytes # 0.9 K/mcL (0.0-1.3); Monocytes % 9.2 %; Neutrophils # 6.8 K/mcL (1.6-8.9); Platelet Count 175 K/mcL (140-400); Red Blood Count 3.95 M/mcL (4.19-5.50); Red Cell Distribution Width 13.3 % (11.5-14.5); Segmented Neutrophils % 67.5 %
[2019-01-16 10:52] LABS: INR 0.9; Prothrombin Time 10.4 Seconds (9.4-12.1)
[2019-01-16 10:55] LABS: Activated Partial Thrombo Time 29.4 Seconds (26.0-36.0)
[2019-01-16 10:59] LABS: Alanine Aminotransferase 7 Units/L (7-52); Albumin 3.7 g/dL (3.5-5.7); Albumin/Globulin Ratio 2.1 (1.1-2.2); Alkaline Phosphatase 45 Units/L (34-104); Aspartate Amino Transferase 12 Units/L (13-39); BUN/Creatinine Ratio 12 (6-26); Bilirubin,Total 0.5 mg/dL (0.3-1.0); Blood Urea Nitrogen 32 mg/dL (8-23); Calcium 8.9 mg/dL (8.6-10.3); Carbon Dioxide 24 mEq/L (23-29); Chloride 108 mEq/L (98-107); Globulin 1.8 g/dL (2.4-3.5); Glucose 132 mg/dL (70-105); Magnesium 2.3 mg/dL (1.6-2.6); Osmolality,Calculated 297 (280-300); Sodium 139 mEq/L (136-145); Total Protein 5.5 g/dL (6.4-8.9); Troponin I < 0.03 ng/mL (< 0.04); eGFR For Non-African Americans 25 (> 60)
[2019-01-16] MEDS ORDERED: MetroNIDAZOLE 500 MG/100 ML 500 MG/100 ML BAG IVPB ONE (12:38)
[2019-01-16] MEDS ORDERED: Naloxone 0.4 MG/ML INJ IVP PRN (12:56)
[2019-01-16] MEDS ORDERED: Piperacillin/Tazobactam 3.375 GM in 0.9 % Sodium Chloride Mini Bag 100 ML IVP ONE (13:01)
--- NOTE | 2019-01-16 13:07 | Internal Med History&Physical ---
Date of Encounter: 01/16/19 Time of Encounter: 13:05 Internal Medicine - H&P: HPI Chief complaint: BRBPR Admitted From: Home Plans for Post Hospital Care: Home History of present illness: Mr. Blackwood is a 68 year old male with history of PAF, sarcoidosis on chronic steroids and diverticulosis with history of diverticular bleeding in 2017 requiring blood transfusion presented to the Ed with complaint of BRBPR. as per patient he woke up this early AM and had multiple episode of painless BRBPR that contained clots. he denies abdominal pain, N/v/D, chest pain, palpitations or SOB. episode started suddenly and he has had atleast 4-5 episodes last episode was in the ED. he reports that he became diaphretic and pale and almost passed out with the last episode that occured in the ED. no one else in the family is sick not has gastrointestinal symptoms. he denies anticoagulation use however is on ASA for PAF. he has had similar symptoms in the past and was told he has had diverticulosis. last colonoscopy was in 2017 for similar symptoms. he cannot recall alleviating or aggravating factors while in the [facility] ED fecal occult was positive, CT A/P was positive for ascending colon diverticulitis, surgery consulted and he was endorsed for admission for further management. as per ED physcian he did develope a presynopal vasovagal episode which he quicly recovered after he was on a bed side commode and had an episode of large of amount of BRBPR. colonoscopy in 2017: Gastroenterology was consulted during this admission and patient underwent colonoscopy, which showed diffuse diverticulosis throughout the colon, nonbleeding internal hemorrhoids and nonbleeding sessile polyp in descending colon, which was removed. Past Med Surg Social Fam HX - Past Medical History Medical history: atrial fibrillation, GI bleed, hyperlipidemia, thyroid disease Additional medical history: saracardosis Psychiatric history: anxiety, depression, other - Past Surgical History Surgical History: arthroscopy, herniorrhaphy, orthopedic, other, other Additional surgical history: dialysis port, kidney biopsy - Social History Smoking Status: Never smoker Smokeless Tobacco Status: No Alcohol use: none Drug use: none - Family History Father Living Status: Hx Family Cardiac Disorders: Yes Hx Family Respiratory Disorders: No Hx Family Cancer: Yes Hx Family GI Disorders: No Hx Family Endocrine Disorder: No Hx Family Neuromuscular Disorders: No Hx Family Neurologic Disorders: No Hx Family HEENT Disorders: No Hx Family Autoimmune Disorders: No Internal Medicine - H&P: Meds Aspirin Enteric Coated [Aspirin EC] 81 mg PO DAILY 04/12/16 [History] Escitalopram [Lexapro] 20 mg PO DAILY 04/12/16 [History] Simvastatin [Zocor] 10 mg PO HS 04/12/16 [History] clonazePAM [Klonopin] 1 mg PO QID PRN 04/12/16 [History] predniSONE [PredniSONE] 12 mg PO DAILY 05/27/16 [History] Amiodarone [Cordarone] 200 mg PO DAILY #30 tablet 05/29/16 [Rx] Levothyroxine [Synthroid] 25 mcg PO 0630 06/06/17 [History] Mirtazapine [Remeron] 45 mg PO HS 06/06/17 [History] Cholecalciferol (Vitamin D3) [Vitamin D3] 5,000 unit PO DAILY 06/16/17 [History] Allergy/AdvReac Type Severity Reaction Status Date / Time No Known Allergies Allergy Verified 08/01/17 13:59 All Systems PM: A 10-system review of systems was performed and is negative for pertinent findings except as documented above in the HPI. - Constitutional Vitals: Temp Pulse Resp BP Pulse Ox 97.8 F 62 12 104/73 97 01/16/19 09:18 01/16/19 10:28 01/16/19 10:28 01/16/19 10:28 01/16/19 10:28 Exam: General: Patient is alert, oriented, no acute distress, Head: atraumatic, normocephalic, Eye: normal appearance, PERRL, no scleral icterus, no conjunctival injection ENT: mucous membranes moist, normal external ear exam Neck: normal inspection, trachea midline, full ROM, no carotid bruits Chest: normal inspection, symmetric chest rise Respiratory: Good respiratory effort. Bilateral breath sounds are clear without wheezing, crackles, or rhonchi. Cardiovascular: Regular rate and rhythm. s1 and s2 No clicks, rubs, gallops, or murmors. Abdomen: Bowel sounds present normoactive x-4 quadrants. Abdomen is soft, nondistended. no Epigastric tenderness. No guarding or rebound. No organomegaly noted musculoskeletal: Spontaneously moving all extremities. no edema, no calf tenderness Skin: warm, dry, intact. Neuro: Alert and oriented x no focal deficit Psych: Patient's affect is normal Internal Med - H&P Results - Labs CBC & Chem 7: 01/16/19 10:22 01/16/19 10:22 Labs: Short CBC 01/16/19 Range/Units 10:22 WBC 10.0 (4.3-11.1) K/mcL Hgb 12.7 L (12.9-16.9) g/dL Hct 39.0 (37.5-50.1) % Plt Count 175 (140-400) K/mcL Neutrophils # 6.8 (1.6-8.9) K/mcL BMP 01/16/19 10:22 Sodium 139 Potassium 5.0 Chloride 108 H Carbon Dioxide 24 BUN 32 H Creatinine 2.58 H Glucose 132 H Calcium 8.9 Cardiac Enzymes 01/16/19 Range/Units 10:22 Troponin I < 0.03 (< 0.04) ng/mL Liver Function 01/16/19 Range/Units 10:22 Total Bilirubin 0.5 (0.3-1.0) mg/dL AST 12 L (13-39) Units/L ALT 7 (7-52) Units/L Alkaline Phosphatase 45 (34-104) Units/L Albumin 3.7 (3.5-5.7) g/dL - EKG Data -: EKG Interpreted by Myself EKG shows normal: sinus rhythm (LAFB QTC 433) - EKG Data Prior EKG available for review: yes When compared to previous EKG: there is no significant change - Impressions ITS Impressions Abdomen/Pelvis CT 01/16/19 11:19 IMPRESSION: 1. Findings favoring acute diverticulitis involving the distal ascending colon. D/ / Lisandro Torres MD / Lisandro Torres MD Interpreting Provider: Lisandro Torres MD - Assessment and Plan (1) Acute diverticulitis Current Visit: Yes Status: Acute Assessment and plan: ascending colon diverticulitis zosyn 4.5 mg once and continue with 3.375 Q8H NPO continue with IV hydration C. Dif ordered vitals as per protocol surgery on board will follow recommendations bcx CT A/P: Findings favoring acute diverticulitis involving the distal ascending colon. (2) Acute blood loss anemia Current Visit: No Status: Acute Assessment and plan: secondary to GIB ( most likely a diverticular bleed ) rule out other etiology ( UGIB vs LGIB) surgery was consulted - will follow recommendations stool occult positive orthostatic vitals protonix 40 mg daily hold antiplatelets, anticoagulation and NSAIDs H/H Q6H type and screen transfuse <8 (3) Vasovagal near syncope Current Visit: Yes Status: Acute Assessment and plan: secondary to acute GIB secondary to diverticulitis. continue with management as above echocardiogram cardiac monitoring (4) CKD (chronic kidney disease) stage 4, GFR 15-29 ml/min Current Visit: No Status: Acute Assessment and plan: Cr. at baseline continue to monitor renal functions avoid nephrotoxic medications. (5) Sarcoidosis Current Visit: No Status: Chronic Assessment and plan: on prednisone 4 mg continue (6) Paroxysmal atrial fibrillation Current Visit: No Status: Chronic Assessment and plan: continue with amiodarone QTC 433 on ASA only - held due to GIB- resume once cleared by surgery not on OAC- reports he follow with Dr. draper who has kept him on ASA ( suspect its secondary to previous GIB) (7) DVT prophylaxis Current Visit: Yes Status: Acute Assessment and plan: scds - Time Spent With Patient Total time spent is greater than 50% in coordination of care (as documented) at patient's floor/unit and/or counseling patient:
--- NOTE | 2019-01-16 14:00 | Emergency Department Note ---
Disposition Clinical Impression: Diverticulitis GI bleed Qualifiers: GI bleed type/associated pathology: diverticulosis Qualified Code(s): K57.91 - Diverticulosis of intestine, part unspecified, without perforation or abscess with bleeding Disposition: Admitted As Inpatient Condition: Good Referrals: Isaías Kaminski DO [Primary Care Provider] - Forms: ED Satisfaction Letter General Adult HPI - General Chief complaint: ED GI Bleed Stated complaint: rectal bleeding Time Seen by Provider: 01/16/19 09:24 Source: patient, family Mode of arrival: private vehicle Limitations: no limitations - History of Present Illness Pain Scale: 2 - Related Data Home Medications Medication Instructions Recorded Confirmed Aspirin Enteric Coated [Aspirin EC] 81 mg PO DAILY 04/12/16 01/16/19 Escitalopram [Lexapro] 20 mg PO DAILY 04/12/16 08/01/17 Simvastatin [Zocor] 10 mg PO HS 04/12/16 01/16/19 clonazePAM [Klonopin] 1 mg PO QID PRN 04/12/16 01/16/19 predniSONE [PredniSONE] 12 mg PO DAILY 05/27/16 01/16/19 Levothyroxine [Synthroid] 25 mcg PO 0630 06/06/17 01/16/19 Mirtazapine [Remeron] 45 mg PO HS 06/06/17 01/16/19 Cholecalciferol (Vitamin D3) 5,000 unit PO DAILY 06/16/17 01/16/19 [Vitamin D3] Previous Rx's Medication Instructions Recorded Amiodarone [Cordarone] 200 mg PO DAILY #30 tablet 05/29/16 Allergies Allergy/AdvReac Type Severity Reaction Status Date / Time No Known Allergies Allergy Verified 08/01/17 13:59 Constitutional: Denies: fever, chills, weakness, weight change, night sweats Eyes: Denies: vision change Cardiovascular: Denies: chest pain, palpitations, dyspnea on exertion, orthopnea, edema, syncope Respiratory: Denies: dyspnea Gastrointestinal: Reports: as per HPI, abdominal pain, hematochezia. Denies: nausea, vomiting, constipation, hematemesis, melena Genitourinary: Denies: urgency, dysuria, frequency, hematuria Musculoskeletal: Denies: back pain, neck pain, joint swelling, arthralgia Integumentary: Denies: rash, lesions Neurological: Denies: weakness, numbness, paresthesias, confusion, vertigo Endocrine: Reports: fatigue Hematological/Lymphatic: Denies: easy bleeding, easy bruising Past Medical History - Past Medical History Medical history: Reports: atrial fibrillation, GI bleed, hyperlipidemia, thyroid disease Surgical history: Reports: arthroscopy, herniorrhaphy, orthopedic, other, other Psychiatric history: Reports: anxiety, depression, other - Social History Smoking Status: Never smoker Smokeless Tobacco Status: No Alcohol use: Reports: none Drug use: Reports: none Physical Exam - General Limitations: no limitations General appearance: alert, in no apparent distress Course Vital Signs Temperature 97.8 F 01/16/19 09:18 Pulse Rate 79 01/16/19 09:18 Respiratory Rate 14 01/16/19 09:18 Blood Pressure 128/79 01/16/19 09:18 O2 Sat by Pulse Oximetry 97 01/16/19 09:18 Temperature 97.8 F 01/16/19 09:18 Pulse Rate 63 01/16/19 13:23 Respiratory Rate 13 01/16/19 13:23 Blood Pressure 123/72 01/16/19 13:23 O2 Sat by Pulse Oximetry 100 01/16/19 13:23 Oxygen Delivery Oxygen Delivery Room Air Medical Decision Making - Lab Data Result diagrams: 01/16/19 10:22 01/16/19 10:22 Lab Results 01/16/19 01/16/19 01/16/19 Range/Units 10:18 10:22 10:22 WBC 10.0 (4.3-11.1) K/mcL RBC 3.95 L (4.19-5.50) M/mcL Hgb 12.7 L (12.9-16.9) g/dL Hct 39.0 (37.5-50.1) % MCV 98.7 (83.0-100.0) fL MCH 32.2 (28.0-33.3) pg MCHC 32.6 (31.6-35.5) g/dL RDW 13.3 (11.5-14.5) % Plt Count 175 (140-400) K/mcL MPV 10.8 (9.4-12.4) fL Immature Gran % 0.4 (0-4) % Seg Neutrophils % 67.5 % Lymphocytes % 21.7 % Monocytes % 9.2 % Eosinophils % 1.0 % Basophils % 0.2 % Neutrophils # 6.8 (1.6-8.9) K/mcL Lymphocytes # 2.2 (0.6-4.6) K/mcL Monocytes # 0.9 (0.0-1.3) K/mcL Eosinophils # 0.1 (0.0-0.6) K/mcL Basophils # 0.0 (0.0-0.2) K/mcL PT 10.4 (9.4-12.1) Seconds INR 0.9 APTT 29.4 (26.0-36.0) Seconds Sodium (136-145) mEq/L Potassium (3.5-5.1) mEq/L Chloride (98-107) mEq/L Carbon Dioxide (23-29) mEq/L BUN (8-23) mg/dL Creatinine (0.70-1.30) mg/dL Est GFR ( Amer) (> 60) Est GFR (Non-Af Amer) (> 60) BUN/Creatinine Ratio (6-26) Glucose (70-105) mg/dL Calculated Osmolality (280-300) Calcium (8.6-10.3) mg/dL Magnesium (1.6-2.6) mg/dL Total Bilirubin (0.3-1.0) mg/dL AST (13-39) Units/L ALT (7-52) Units/L Alkaline Phosphatase (34-104) Units/L Troponin I (< 0.04) ng/mL Serum Total Protein (6.4-8.9) g/dL Albumin (3.5-5.7) g/dL Globulin (2.4-3.5) g/dL Albumin/Globulin Ratio (1.1-2.2) Stool Occult Blood Positive A (Negative) Blood Type Antibody Screen Crossmatch 01/16/19 01/16/19 Range/Units 10:22 10:22 WBC (4.3-11.1) K/mcL RBC (4.19-5.50) M/mcL Hgb (12.9-16.9) g/dL Hct (37.5-50.1) % MCV (83.0-100.0) fL MCH (28.0-33.3) pg MCHC (31.6-35.5) g/dL RDW (11.5-14.5) % Plt Count (140-400) K/mcL MPV (9.4-12.4) fL Immature Gran % (0-4) % Seg Neutrophils % % Lymphocytes % % Monocytes % % Eosinophils % % Basophils % % Neutrophils # (1.6-8.9) K/mcL Lymphocytes # (0.6-4.6) K/mcL Monocytes # (0.0-1.3) K/mcL Eosinophils # (0.0-0.6) K/mcL Basophils # (0.0-0.2) K/mcL PT (9.4-12.1) Seconds INR APTT (26.0-36.0) Seconds Sodium 139 (136-145) mEq/L Potassium 5.0 (3.5-5.1) mEq/L Chloride 108 H (98-107) mEq/L Carbon Dioxide 24 (23-29) mEq/L BUN 32 H (8-23) mg/dL Creatinine 2.58 H (0.70-1.30) mg/dL Est GFR ( Amer) 30 L (> 60) Est GFR (Non-Af Amer) 25 L (> 60) BUN/Creatinine Ratio 12 (6-26) Glucose 132 H (70-105) mg/dL Calculated Osmolality 297 (280-300) Calcium 8.9 (8.6-10.3) mg/dL Magnesium 2.3 (1.6-2.6) mg/dL Total Bilirubin 0.5 (0.3-1.0) mg/dL AST 12 L (13-39) Units/L ALT 7 (7-52) Units/L Alkaline Phosphatase 45 (34-104) Units/L Troponin I < 0.03 (< 0.04) ng/mL Serum Total Protein 5.5 L (6.4-8.9) g/dL Albumin 3.7 (3.5-5.7) g/dL Globulin 1.8 L (2.4-3.5) g/dL Albumin/Globulin Ratio 2.1 (1.1-2.2) Stool Occult Blood (Negative) Blood Type O POSITIVE Antibody Screen NEGATIVE Crossmatch See Detail Attestation Statement - Attestation Attestation: For this encounter, I have reviewed the VASCULAR SONOGRAPHER or PA documentation, treatment plan, and medical decision making; and I have had face to face time with this patient I personally seen the patient patient is a 68-year-old Radha woman who presents them are strongly chief complaint of rectal bleeding. Patient has some mild tenderness in the abdomen and priors prior history of GI bleeds in the past. Exam patient has mild to palpation in the left lower quadrant Medical decision management CT scan shows that the patient has acute diverticulitis case will be discussed with the hospitalist the patient be admitted to the hospitalist service.
[2019-01-16 15:47] LABS: Hemoglobin 12.2 g/dL (12.9-16.9)
--- NOTE | 2019-01-16 15:52 | Electrocardiograph Report ---
[place] [id number] Test Date: 2019-01-16 Pat Name: Aneudy Blackwood Department: EXAM11 Room: 3A11 Gender: M Final Inspector Balance Wheel: : 1950 Requested By: Maday Mccoy Order Number: [id number] Reading MD: Eduardo Montalvo Measurements Intervals Williams Rate: 55 P: 48 AK: 132 QRS: -69 QRSD: 104 T: 58 QT: 452 QTc: 433 Interpretive Statements Sinus rhythm Abnormal R-wave progression Electronically Signed On 01-16-2019 15:50:57 EDT by Eduardo Montalvo
[2019-01-16] MEDS: 0.9 % Sodium Chloride 1,000 ML IVC SCH ×2 (16:09→22:53)
[2019-01-16] MEDS ORDERED: clonazePAM 1 MG TABLET PO PRN (17:15)
[2019-01-16] MEDS ORDERED: Perflutren Lipid Microsphere 1.3 ML in 0.9 % Sodium Chloride 8.7 ML IVP ONE (19:19)
[2019-01-16] MEDS: Mirtazapine 15 MG TABLET PO SCH (22:04)
[2019-01-16] MEDS ORDERED: clonazePAM 1 MG TABLET PO ONE (22:10)
[2019-01-17] MEDS: Piperacillin/Tazobactam 3.375 GM in 0.9 % Sodium Chloride Mini Bag 100 ML IVPB SCH ×4 (00:34→23:38)
[2019-01-17] MEDS: Levothyroxine 25 MCG TABLET PO SCH (05:43)
[2019-01-17 05:57] LABS: Basophils % 0.2 %; Eosinophils # 0.1 K/mcL (0.0-0.6); Eosinophils % 0.8 %; Hematocrit 30.7 % (37.5-50.1); Hemoglobin 9.7 g/dL (12.9-16.9); Immature Granulocytes % 0.3 % (0-4); Lymphocytes # 1.2 K/mcL (0.6-4.6); Lymphocytes % 20.8 %; Mean Corpuscular HGB Conc 31.6 g/dL (31.6-35.5); Mean Corpuscular Hemoglobin 31.7 pg (28.0-33.3); Mean Corpuscular Volume 100.3 fL (83.0-100.0); Monocytes # 0.5 K/mcL (0.0-1.3); Monocytes % 7.8 %; Neutrophils # 4.2 K/mcL (1.6-8.9); Platelet Count 131 K/mcL (140-400); Red Blood Count 3.06 M/mcL (4.19-5.50); Red Cell Distribution Width 13.6 % (11.5-14.5); Segmented Neutrophils % 70.1 %
[2019-01-17 06:07] LABS: Calcium 7.7 mg/dL (8.6-10.3); Magnesium 2.1 mg/dL (1.6-2.6); Phosphorous 2.9 mg/dL (2.7-4.5); Potassium 4.4 mEq/L (3.5-5.1)
[2019-01-17] MEDS: clonazePAM 1 MG TABLET PO PRN ×3 (08:04→22:17)
[2019-01-17] MEDS: *HR* Amiodarone 200 MG TABLET PO SCH (08:04)
[2019-01-17] MEDS: Cholecalciferol (D-3) 1,000 UNIT TABLET PO SCH (08:04)
[2019-01-17] MEDS: predniSONE 1 MG TABLET PO SCH (08:04)
[2019-01-17 10:47] LABS: Hematocrit 35.4 % (37.5-50.1); Hemoglobin 11.2 g/dL (12.9-16.9)
--- NOTE | 2019-01-17 11:15 | Internal Med Progress Note ---
Hospitalist Progress Note - Encounter Date of Encounter: 01/17/19 Time of Encounter: 11:30 - Subjective Interval History: at bedside. No dizziness this AM. Denies any further episodes of bleeding. Denies Abdominal pain, SOB, CP, n/v. - Exam Vitals: Temp Pulse Resp BP Pulse Ox 98.3 F 66 15 119/63 96 01/17/19 10:34 01/17/19 10:34 01/17/19 10:34 01/17/19 10:34 01/17/19 10:34 Exam: General: Patient is alert, oriented, no acute distress, Head: atraumatic, normocephalic, Eye: normal appearance, PERRL, no scleral icterus, no conjunctival injection ENT: mucous membranes moist, normal external ear exam Neck: normal inspection, trachea midline, full ROM, no carotid bruits Chest: normal inspection, symmetric chest rise Respiratory: Good respiratory effort. Bilateral breath sounds are clear without wheezing, crackles, or rhonchi. Cardiovascular: Regular rate and rhythm. s1 and s2 No clicks, rubs, gallops, or murmors. Abdomen: Bowel sounds present normoactive x-4 quadrants. Abdomen is soft, nondistended. no Epigastric tenderness. No guarding or rebound. No organomegaly noted musculoskeletal: Spontaneously moving all extremities. no edema, no calf tenderness Skin: warm, dry, intact. Neuro: Alert and oriented x no focal deficit Psych: Patient's affect is normal - Assessment and Plan (1) Acute blood loss anemia Current Visit: No Status: Acute Assessment and Plan: secondary to GIB ( most likely a diverticular bleed ) rule out other etiology ( UGIB vs LGIB) protonix 40 mg daily hold antiplatelets, anticoagulation and NSAIDs transfuse <8 H&H improved will not give PRBCs Gi on board, recommendations appreciated. (2) Acute diverticulitis Current Visit: Yes Status: Acute Assessment and Plan: ascending colon diverticulitis zosyn 4.5 mg once and continue with 3.375 Q8H NPO continue with IV hydration C. Dif ordered vitals as per protocol surgery on board will follow recommendations bcx CT A/P: Findings favoring acute diverticulitis involving the distal ascending colon. (3) Paroxysmal atrial fibrillation Current Visit: No Status: Chronic Assessment and Plan: continue with amiodarone QTC 433 on ASA only - held due to GIB- resume once cleared by surgery not on OAC- reports he follow with Dr. draper who has kept him on ASA. Patient tells me this is due to prior history of GIB (4) Sarcoidosis Current Visit: No Status: Chronic Assessment and Plan: on prednisone 4 mg continue (5) CKD (chronic kidney disease) stage 4, GFR 15-29 ml/min Current Visit: No Status: Acute Assessment and Plan: Cr. at baseline continue to monitor renal functions avoid nephrotoxic medications. (6) Vasovagal near syncope Current Visit: Yes Status: Acute Assessment and Plan: secondary to acute GIB secondary to diverticulitis. continue with management as above echocardiogram cardiac monitoring (7) DVT prophylaxis Current Visit: Yes Status: Acute Assessment and Plan: scds - Time Spent with Patient Total time spent is greater than 50% in coordination of care (as documented) at patient's floor/unit and/or counseling patient: Internal Medicine: Result - Labs CBC & Chem 7: 01/17/19 10:20 01/17/19 05:23 Labs: Short CBC 01/16/19 01/16/19 01/17/19 Range/Units 15:37 22:08 05:23 WBC 5.9 (4.3-11.1) K/mcL Hgb 12.2 L 10.0 L D 9.7 L (12.9-16.9) g/dL Hct 38.0 31.0 L 30.7 L (37.5-50.1) % Plt Count 131 L (140-400) K/mcL Neutrophils # 4.2 (1.6-8.9) K/mcL 01/17/19 Range/Units 10:20 WBC (4.3-11.1) K/mcL Hgb 11.2 L D (12.9-16.9) g/dL Hct 35.4 L (37.5-50.1) % Plt Count (140-400) K/mcL Neutrophils # (1.6-8.9) K/mcL BMP 01/17/19 05:23 Sodium 141 Potassium 4.4 Chloride 110 H Carbon Dioxide 24 BUN 33 H Creatinine 2.39 H Glucose 79 Calcium 7.7 L - ABG Interpretation ABG results: PT/INR, D-dimer PT 10.4 Seconds (9.4-12.1) 01/16/19 10:22 - Impressions Impressions Abdomen/Pelvis CT 01/16/19 11:19 IMPRESSION: 1. Findings favoring acute diverticulitis involving the distal ascending colon. D/ / Lisandro Torres MD / Lisandro Torres MD Interpreting Provider: Lisandro Torres MD Echocardiogram 01/16/19 13:26 Impressions: LVEF 60%. Normal LV chamber size, wall thickness and function. Atypical septal motion consistent with bundle branch block. Mild left ventricular diastolic dysfunction. Normal right ventricular structure and function. Borderline mild pulmonary hypertension. No significant valvular dysfunction. Left Ventricular Wall Motion: Rest Echo Findings All wall segments showed normal motion. Findings: Study Quality * Technically adequate exam. ECG Findings * Sinus rhythm with BBB. Left Ventricle * LVEF 60%. * Normal LV chamber size, wall thickness and function. * Atypical septal motion consistent with bundle branch block. * Mild left ventricular diastolic dysfunction. Right Ventricle * Normal right ventricular structure and function. Left Atrium * Mildly dilated left atrium. Right Atrium * Mildly dilated right atrium. Aortic Valve * Aortic valve not well visualized. * No aortic regurgitation. * No aortic stenosis. Mitral Valve * Normal mitral valve structure and function. * No mitral regurgitation. * No mitral stenosis. Tricuspid Valve * Normal tricuspid valve structure and function. * Trace tricuspid regurgitation. * Borderline mild pulmonary hypertension. Aorta * Normally sized aortic root. Pericardium * The pericardium appears normal. IVC * Normal IVC dimensions and inspiratory collapse. Pulmonary Artery * Pulmonary artery not well visualized. Pulmonic Valve * Pulmonic valve not well visualized. * Trace pulmonic regurgitation. Consult Discharge Plan - Plan Referrals: Isaías Kaminski DO [Primary Care Provider] -
--- NOTE | 2019-01-17 12:19 | Gastroenterology Consult Note ---
<Gerhard Melgoza - Last Filed: 01/17/19 12:16> Date of Encounter: 01/17/19 Time of Encounter: 11:00 - Assessment and plan (1) GI bleed Status: Acute Assessment and plan: Hgb 12.7 on admission and today Hgb 9.7. Continue to monitor CBC and transfuse PRBC as needed. Consider colonoscopy tomorrow. Dr. Frank to review CT images. Qualifiers: GI bleed type/associated pathology: diverticulosis Qualified Code(s): K57.91 - Diverticulosis of intestine, part unspecified, without perforation or abscess with bleeding (2) Acute diverticulitis Status: Acute Assessment and plan: CT A/P shows mild pericolonic inflammation involving the distal ascending colon favoring acute diverticulitis. Continue antibiotics. Recommend daily fiber supplement. Dr. Frank to review CT and decide on colonoscopy. Start clear liquid diet today. - Time Spent With Patient Total time spent is greater than 50% in coordination of care (as documented) at patient's floor/unit and/or counseling patient: GI History of Present Illness - Data of Consult Patient: known to practice within the last 3 years Consult date: 01/17/19 Requesting Physician: Valeria Lucia MD - Consult Narrative Reason for consult: Acute GI bleed History of present illness: Mr. Blackwood is a 68 year old male with PMHx of Afib, sarcoidosis, diverticulosis who presented to the ED with complaint of BRBPR. He reports three episodes of pa inless BRBPR with clots. Patient states each episode contained "a lot of blood". In the ED, he did develop a presynopal vasovagal episode which he quicly recovered after he was on a bed side commode and had an episode of large of amount of BRBPR. He states his last episode of bleeding was at 10:00 AM yesterday. He denies fever, chills, chest pain, abdominal pain, nausea, vo miting, diarrhea. Fecal occult blood test positive. CT A/P shows mild pericolonic inflammation involving the distal ascending colon favoring acute diverticulitis. Hgb 12.7 on admission and today Hgb 9.7. Procedures: Colonoscopy 06/17/2017 Dr. Leroy: Diverticulosis, internal hemorrhoids, 6 mm tubular adenoma, repeat 3 years. Colonoscopy 05/28/2016 Dr. Leroy: Diverticulosis and internal hemorrhoids. NSAIDs: ASA Anticoagulation: None Past Med Surg Social Fam HX - Past Medical History Medical history: atrial fibrillation, GI bleed, hyperlipidemia, thyroid disease Additional medical history: sarcardosis Psychiatric history: anxiety, depression, other - Past Surgical History Surgical History: arthroscopy, herniorrhaphy, orthopedic, other, other Additional surgical history: dialysis port, kidney biopsy - Social History Smoking Status: Never smoker Smokeless Tobacco Status: No Alcohol use: none Drug use: none - Family History Father Living Status: Hx Family Cardiac Disorders: Yes Hx Family Respiratory Disorders: No Hx Family Cancer: Yes Hx Family GI Disorders: No Hx Family Endocrine Disorder: No Hx Family Neuromuscular Disorders: No Hx Family Neurologic Disorders: No Hx Family HEENT Disorders: No Hx Family Autoimmune Disorders: No - Gastrointestinal Gastrointestinal: Present: as per HPI - Constitutional Constitutional: as per HPI - EENT Eyes: as per HPI Ears: Present: as per HPI Nose, mouth and throat: Present: as per HPI - Cardiovascular Cardiovascular ROS: Present: as per HPI - Respiratory Respiratory IM: Present: as per HPI - Genitourinary Genitourinary: Absent: change in color, Urinary frequency - Neurological ROS Neurological GI: Present: as per HPI - Hematologic/Lymphatic Hematologic/Lymphatic pediatric: Present: as per HPI - Musculoskeletal Musculoskeletal ROS GI: Present: as per HPI - Integumentary Integumentary GI: Present: as per HPI - Psychiatric ROS Psychiatric GI: Present: as per HPI - Endocrine Endocrine IM: Present: as per HPI - Constitutional Vitals: Temp Pulse Resp BP Pulse Ox 98.3 F 66 15 119/63 96 01/17/19 10:34 01/17/19 10:34 01/17/19 10:34 01/17/19 10:34 01/17/19 10:34 General appearance: Present: cooperative, A&O X 3, no acute distress, answers questions appropriately - Head Head exam: Present: atraumatic, normocephalic - Eye Eye exam: Present: normal appearance, sclera anicteric - ENT ENT exam: Present: mucous membranes dry - Neck Neck exam general surgery: Present: normal inspection, trachea midline - Respiratory Respiratory exam: Present: CTAB. Absent: rales, rhonchi - Cardiovascular Cardiovascular exam: Present: RRR, +S1, +S2 - GI/Abdominal GI/Abdominal exam: Present: soft, no peritoneal signs. Absent: distended, firm, guarding, tenderness - Rectal Rectal exam: Present: deferred - Extremities Exam Extremities exam: Present: warm - Neurological Exam Neurological exam: Present: no focal deficits - Psychiatric Psychiatric exam: Present: normal affect, normal mood - Skin Skin exam: Present: dry, intact, normal color, warm Results - Labs CBC & Chem 7: 01/17/19 10:20 01/17/19 05:23 Labs: Last Result 01/17/19 05:23 Calcium 7.7 L Entire Visit 01/17/19 01/17/19 05:23 10:20 Hgb 9.7 L 11.2 L D Hct 30.7 L 35.4 L - ABG ABG results: PT/INR, D-dimer PT 10.4 Seconds (9.4-12.1) 01/16/19 10:22 - Impressions Impressions Echocardiogram 01/16/19 13:26 Impressions: LVEF 60%. Normal LV chamber size, wall thickness and function. Atypical septal motion consistent with bundle branch block. Mild left ventricular diastolic dysfunction. Normal right ventricular structure and function. Borderline mild pulmonary hypertension. No significant valvular dysfunction. Left Ventricular Wall Motion: Rest Echo Findings All wall segments showed normal motion. Findings: Study Quality * Technically adequate exam. ECG Findings * Sinus rhythm with BBB. Left Ventricle * LVEF 60%. * Normal LV chamber size, wall thickness and function. * Atypical septal motion consistent with bundle branch block. * Mild left ventricular diastolic dysfunction. Right Ventricle * Normal right ventricular structure and function. Left Atrium * Mildly dilated left atrium. Right Atrium * Mildly dilated right atrium. Aortic Valve * Aortic valve not well visualized. * No aortic regurgitation. * No aortic stenosis. Mitral Valve * Normal mitral valve structure and function. * No mitral regurgitation. * No mitral stenosis. Tricuspid Valve * Normal tricuspid valve structure and function. * Trace tricuspid regurgitation. * Borderline mild pulmonary hypertension. Aorta * Normally sized aortic root. Pericardium * The pericardium appears normal. IVC * Normal IVC dimensions and inspiratory collapse. Pulmonary Artery * Pulmonary artery not well visualized. Pulmonic Valve * Pulmonic valve not well visualized. * Trace pulmonic regurgitation. Consult Discharge Plan - Plan Instructions: Amoxicillin/Clavulanate Potassium (By mouth), Gastrointestinal Bleeding (DC), Diverticulitis (DC), Chronic Kidney Disease (DC) Referrals: Isaías Kaminski DO [Primary Care Provider] - (Physicians office will follow- up with the patient on the phone. ) Prescriptions: Amoxicillin/Clavulanate [Augmentin] 875 mg PO BIDWM #10 tablet <Toy Frank - Last Filed: 01/22/19 05:43> Date of Encounter: 01/17/19 - Time Spent With Patient Total time spent is greater than 50% in coordination of care (as documented) at patient's floor/unit and/or counseling patient: GI History of Present Illness - Data of Consult Requesting Physician: Manuel Crow MD - Consult Narrative History of present illness: Mr. Blackwood is a 68 year old male - Constitutional Vitals: Temp Pulse Resp BP Pulse Ox 98.1 F 66 15 129/71 97 01/21/19 04:29 01/21/19 08:14 01/21/19 08:14 01/21/19 08:14 01/21/19 08:14 Results - Labs CBC & Chem 7: 01/21/19 07:03 01/21/19 07:03 - ABG ABG results: PT/INR, D-dimer PT 11.8 Seconds (9.4-12.1) 01/18/19 08:40 - Attending Attestation I have personally performed a face to face evaluation on this patient. I have reviewed and agree with the care plan. History and Exam by me shows:
[2019-01-17] MEDS ORDERED: Ringers Solution, Lactated 1,000 ML IVC STA (16:04)
[2019-01-17] MEDS: Pantoprazole 40 MG VIAL IVP SCH (16:17)
[2019-01-17 16:22] LABS: Hematocrit 30.7 % (37.5-50.1); Hemoglobin 9.8 g/dL (12.9-16.9)
[2019-01-17] MEDS ORDERED: SODIUM CHLORIDE/NAHCO3/KCL/PEG 4,000 ML SOLN.RECON PO ONE (17:00)
[2019-01-17] MEDS ORDERED: 0.9 % Sodium Chloride Mini Bag 100 ML ONE (17:05)
[2019-01-17] MEDS ORDERED: 0.9 % Sodium Chloride 250 ML ONE ×2 (17:06→21:18)
[2019-01-17] MEDS ORDERED: Ringers Solution, Lactated 1,000 ML ONE (18:03)
--- NOTE | 2019-01-17 18:54 | AcuteCare Surgery Consult Note ---
Date of Encounter: 01/17/19 Time of Encounter: 18:54 History of Present Illness Consult date: 01/17/19 Reason for consult: other (LGIB) Requesting physician: Manuel Crow Past Med Surg Social Fam HX - Past Medical History Medical history: atrial fibrillation, GI bleed, hyperlipidemia, thyroid disease Additional medical history: sarcardosis Psychiatric history: anxiety, depression, other - Past Surgical History Surgical History: arthroscopy, herniorrhaphy, orthopedic, other, other Additional surgical history: dialysis port, kidney biopsy - Social History Smoking Status: Never smoker Smokeless Tobacco Status: No Alcohol use: none Drug use: none - Family History Father Living Status: Hx Family Cardiac Disorders: Yes Hx Family Respiratory Disorders: No Hx Family Cancer: Yes Hx Family GI Disorders: No Hx Family Endocrine Disorder: No Hx Family Neuromuscular Disorders: No Hx Family Neurologic Disorders: No Hx Family HEENT Disorders: No Hx Family Autoimmune Disorders: No Medications and Allergies Aspirin Enteric Coated [Aspirin EC] 81 mg PO DAILY 04/12/16 [History] Escitalopram [Lexapro] 20 mg PO DAILY 04/12/16 [History] Simvastatin [Zocor] 10 mg PO HS 04/12/16 [History] clonazePAM [Klonopin] 2 mg PO HS 04/12/16 [History] Amiodarone [Cordarone] 200 mg PO DAILY #30 tablet 05/29/16 [Rx] Levothyroxine [Synthroid] 25 mcg PO 0630 06/06/17 [History] Mirtazapine [Remeron] 45 mg PO HS 06/06/17 [History] Alendronate Sodium [Fosamax] 35 mg PO SA 01/17/19 [History] Cholecalciferol (D-3) [Vitamin D] 3,000 unit PO DAILY 01/17/19 [History] Fexofenadine HCl [Allergy Relief] 180 mg PO DAILY 01/17/19 [History] clonazePAM [Clonazepam] 1 mg PO QAM 01/17/19 [History] predniSONE [PredniSONE] 4 mg PO DAILY 01/17/19 [History] Allergy/AdvReac Type Severity Reaction Status Date / Time No Known Allergies Allergy Verified 08/01/17 13:59 Review of Systems All systems PM: The remainder of the systems were reviewed and are negative General Surgery Exam Initial Vital Signs Temp Pulse Resp BP Pulse Ox 97.8 F 79 14 128/79 97 01/16/19 09:18 01/16/19 09:18 01/16/19 09:18 01/16/19 09:18 01/16/19 09:18 Exam Initial Vital Signs Temp Pulse Resp BP Pulse Ox 97.8 F 79 14 128/79 97 01/16/19 09:18 01/16/19 09:18 01/16/19 09:18 01/16/19 09:18 01/16/19 09:18 Results - Labs 01/17/19 16:13 01/17/19 05:23 Abnormal lab results RBC 3.06 M/mcL (4.19-5.50) L 01/17/19 05:23 Hgb 9.8 g/dL (12.9-16.9) L 01/17/19 16:13 Hct 30.7 % (37.5-50.1) L 01/17/19 16:13 MCV 100.3 fL (83.0-100.0) H 01/17/19 05:23 Plt Count 131 K/mcL (140-400) L 01/17/19 05:23 Chloride 110 mEq/L (98-107) H 01/17/19 05:23 BUN 33 mg/dL (8-23) H 01/17/19 05:23 2.39 mg/dL (0.70-1.30) H 01/17/19 05:23 Est GFR ( Amer) 33 (> 60) L 01/17/19 05:23 Est GFR (Non-Af Amer) 27 (> 60) L 01/17/19 05:23 Glucose 132 mg/dL (70-105) H 01/16/19 10:22 Calcium 7.7 mg/dL (8.6-10.3) L 01/17/19 05:23 AST 12 Units/L (13-39) L 01/16/19 10:22 5.5 g/dL (6.4-8.9) L 01/16/19 10:22 1.8 g/dL (2.4-3.5) L 01/16/19 10:22 Positive (Negative) A 01/16/19 10:18 Crossmatch See Detail 01/16/19 10:22 Diabetes panel 01/17/19 Range/Units 05:23 Sodium 141 (136-145) mEq/L Potassium 4.4 (3.5-5.1) mEq/L Chloride 110 H (98-107) mEq/L Carbon Dioxide 24 (23-29) mEq/L BUN 33 H (8-23) mg/dL Creatinine 2.39 H (0.70-1.30) mg/dL Glucose 79 (70-105) mg/dL Calcium 7.7 L (8.6-10.3) mg/dL Calcium panel 01/17/19 Range/Units 05:23 Calcium 7.7 L (8.6-10.3) mg/dL Phosphorus 2.9 (2.7-4.5) mg/dL Pituitary panel 01/17/19 Range/Units 05:23 Sodium 141 (136-145) mEq/L Potassium 4.4 (3.5-5.1) mEq/L Chloride 110 H (98-107) mEq/L Carbon Dioxide 24 (23-29) mEq/L BUN 33 H (8-23) mg/dL Creatinine 2.39 H (0.70-1.30) mg/dL Glucose 79 (70-105) mg/dL Calcium 7.7 L (8.6-10.3) mg/dL Adrenal panel 01/17/19 Range/Units 05:23 Sodium 141 (136-145) mEq/L Potassium 4.4 (3.5-5.1) mEq/L Chloride 110 H (98-107) mEq/L Carbon Dioxide 24 (23-29) mEq/L BUN 33 H (8-23) mg/dL Creatinine 2.39 H (0.70-1.30) mg/dL Glucose 79 (70-105) mg/dL Calcium 7.7 L (8.6-10.3) mg/dL All other labs normal. Consult Discharge Plan - Plan Referrals: Isaías Kaminski DO [Primary Care Provider] -
--- NOTE | 2019-01-17 19:18 | Anesthesia Evaluation PreOp ---
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: Denies Any Significant HX Other Medical History: Renal (CKD 4), Thyroid, Other (GI bleed, H/O divericulosis, sarcoidosis, anxiety/depression) Anesthesia History: No Prior Anesthetic Complications, Past Anesthesia Alcohol Use: none Drug use: none Medications and Allergies Aspirin Enteric Coated [Aspirin EC] 81 mg PO DAILY 04/12/16 [History] Escitalopram [Lexapro] 20 mg PO DAILY 04/12/16 [History] Simvastatin [Zocor] 10 mg PO HS 04/12/16 [History] clonazePAM [Klonopin] 2 mg PO HS 04/12/16 [History] Amiodarone [Cordarone] 200 mg PO DAILY #30 tablet 05/29/16 [Rx] Levothyroxine [Synthroid] 25 mcg PO 0630 06/06/17 [History] Mirtazapine [Remeron] 45 mg PO HS 06/06/17 [History] Alendronate Sodium [Fosamax] 35 mg PO SA 01/17/19 [History] Cholecalciferol (D-3) [Vitamin D] 3,000 unit PO DAILY 01/17/19 [History] Fexofenadine HCl [Allergy Relief] 180 mg PO DAILY 01/17/19 [History] clonazePAM [Clonazepam] 1 mg PO QAM 01/17/19 [History] predniSONE [PredniSONE] 4 mg PO DAILY 01/17/19 [History] Allergy/AdvReac Type Severity Reaction Status Date / Time No Known Allergies Allergy Verified 08/01/17 13:59 - Meds/Allergy Pre-op Review Medications Reviewed: Yes Allergies Reviewed: Yes Beta Blockers on Current Med List: No Anesthesia Results - Labs 01/17/19 20:10 01/17/19 05:23 - Imaging EKG: report reviewed (01/16/2019 Sinus rhythm Abnormal R-wave progression) Additional studies: 01/16/2019 Echo Impressions: LVEF 60%. Normal LV chamber size, wall thickness and function. Atypical septal motion consistent with bundle branch block. Mild left ventricular diastolic dysfunction. Normal right ventricular structure and function. Borderline mild pulmonary hypertension. No significant valvular dysfunction. Anesthesia Exam Vital Signs/O2 Sat/Glucose, Most Recent Temp Pulse Resp BP Pulse Ox 97.9 F 77 18 117/85 95 01/17/19 17:39 01/17/19 18:00 01/17/19 18:00 01/17/19 18:00 01/17/19 18:00 Blood Glucose* 77 Height: 6'2''/1.88m Weight: 189 lbs/85.8 kg Pain Scale: 0 Pain Scale Used: Numeric (1 - 10) - HEENT Pupil (Motor): EOMI Mallampati: III Teeth: Normal Oral Opening: Greater than 3 - REAL ESTATE SERVICES COORDINATOR LOC: Oriented REAL ESTATE SERVICES COORDINATOR Motor: Normal RUE, Normal LUE, Normal RLE, Normal LLE, Normal Face REAL ESTATE SERVICES COORDINATOR Sensory: Normal: RUE, LUE, RLE, LLE, Face - Cardiac Rhythm: Regular Murmur: None - Pulmonary Breath Sounds: bilateral Clear Respiratory Effort: Symmetrical Anesthesia Assess/Plan ASA Score: 4 Level of consciousness: Cooperative, Oriented, Tranquil Anesthetic Plan: MAC Monitoring Plan: Standard Monitors
--- NOTE | 2019-01-17 19:28 | Event Note ---
Date of Encounter: 01/17/19 Time of Encounter: 19:21 Called to evaluate the patient due to noted several bloody bowel movements with clots. Noted hypotension. IVF given as well as a unit of PRBC. Patient already evaluated by GI and plan is for a colonoscopy tomorrow. I personally reviewed the CT scan study and images. Noted diverticulosis as well as a whitish material seen in the stomach. Blood can sometimes appear as a whitish artifact on CT. Discussed with patient-he did take his morning medications prior to his LGIB episodes and presentation to the hospital-which could also explain the findings. No pain on exam, no masses. Patient denies any history of nausea or vomiting. CT scan also demonstrated copious amount of stool in the colon. It is possible that the clots remnant of the previous bleed, a new bleed, or both. SBP increased to 110s-120. Requested NGT be placed to examine aspirate. Normal gastric fluid noted. NGT can now be used to administer the bowel prep to maximize the utility of the colonoscopy for identification of a possible source behind his GIB. Available if urgently needed. Thank you.
--- NOTE | 2019-01-17 19:58 | Procedure Note ---
<Gerhard Sung - Last Filed: 01/17/19 19:52> Date of procedure: 01/17/19 Pre-op diagnosis: Shock secondary to Lower GI Bleed Post-op diagnosis: same Procedure: Procedure Note: Central Venous Catheter Insertion Indication: Hemorrhagic shock Attending Physician: Dr. Rdz [employer] Supervisor: Gerhard Sung, Consent: Detailed explanation of the procedure, treatment options, risks including but not limited to infection and bleeding, and benefits were explained to the patient. A written informed consent was obtained and signed by the patient's who is POA. Technique: A time out was preformed identifying the correct procedure, the correct location with the nursing staff. The right neck was prepped with 2% chlorhexidine and draped with a full length sterile sheet in the usual fashion. Local anesthesia was obtained with 3cc 1% lidocaine. The right internal jugular vein was accessed under ultrasound guidance with an 18 gauge thin wall needle with flash of dark blood. A guidewire was passed easily through the needle and a dilator was used to dilate using the seldinger technique. A triple lumen was inserted via the seldinger technique. Blood was withdrawn from all lumens and flushed with normal saline. The catheter was sutured in place and a sterile dr essing was applied over the site prior to removal of drapes. The patient tolerated the procedure well and there were no complications. A chest X-Ray was ordered and taken immediately post-procedure and the tip of the catheter was noted to terminate just superior to the cavoatrial junction. No pneumothorax was noted. Patient remained hemodynamically stable throughout the procedure. EBL: 0cc Anesthesia: local Surgeon: Gerhard Sung Was there an data analysis assistant present: Yes Acetylene Torch Burner: Joyce Griffin Estimated blood loss (cc): 0 Specimen: none Pathology: none sent Condition: critical Disposition: ICU <Geoff Rdz - Last Filed: 01/18/19 07:16> Procedure: Dr Crow is the primary attending. I was told that Dr Sung has full p rivilege, per hospital policy, to do this procedure, no supervision needed. I was asked to work as a backup. Dr Sung finished the procedure independently. I have never been called to bedside to help.
[2019-01-17 20:21] LABS: Hematocrit 26.4 % (37.5-50.1); Hemoglobin 8.4 g/dL (12.9-16.9)
[2019-01-17] MEDS: Mirtazapine 15 MG TABLET PO SCH (22:17)
[2019-01-18 01:59] LABS: Hematocrit 27.8 % (37.5-50.1); Hemoglobin 9.2 g/dL (12.9-16.9)
[2019-01-18] MEDS ORDERED: 0.9 % Sodium Chloride 250 ML ONE (02:15)
[2019-01-18] MEDS: Pantoprazole 40 MG VIAL IVP SCH ×2 (05:09→18:01)
[2019-01-18] MEDS ORDERED: Propofol 500 MG/50 ML INFUS..BTL ONE (06:48)
[2019-01-18] MEDS ORDERED: 0.9 % Sodium Chloride 1,000 ML ONE (06:57)
[2019-01-18] MEDS ORDERED: *HR* PHENYLEPHRINE 1,000 MCG/10 ML SYRINGE IVP ONE (07:49)
[2019-01-18] MEDS: Cholecalciferol (D-3) 1,000 UNIT TABLET PO SCH (08:31)
[2019-01-18] MEDS: *HR* Amiodarone 200 MG TABLET PO SCH (08:31)
[2019-01-18] MEDS: Piperacillin/Tazobactam 3.375 GM in 0.9 % Sodium Chloride Mini Bag 100 ML IVPB SCH ×3 (08:32→23:33)
[2019-01-18] MEDS: Levothyroxine 25 MCG TABLET PO SCH (08:32)
[2019-01-18 08:53] LABS: Eosinophils % 0.2 %; Hematocrit 26.7 % (37.5-50.1); Immature Granulocytes % 0.5 % (0-4); Immature Platelets 3.4 % (1.1-6.1); Lymphocytes # 0.9 K/mcL (0.6-4.6); Lymphocytes % 8.3 %; Mean Corpuscular HGB Conc 33.7 g/dL (31.6-35.5); Mean Corpuscular Hemoglobin 31.8 pg (28.0-33.3); Mean Corpuscular Volume 94.3 fL (83.0-100.0); Mean Platelet Volume 10.6 fL (9.4-12.4); Monocytes # 0.8 K/mcL (0.0-1.3); Monocytes % 7.9 %; Neutrophils # 8.7 K/mcL (1.6-8.9); Platelet Count 109 K/mcL (140-400); Red Blood Count 2.83 M/mcL (4.19-5.50); Red Cell Distribution Width 14.6 % (11.5-14.5); Segmented Neutrophils % 83.1 %
[2019-01-18 09:03] LABS: Prothrombin Time 11.8 Seconds (9.4-12.1)
[2019-01-18 09:16] LABS: Calcium 6.7 mg/dL (8.6-10.3); Potassium 4.2 mEq/L (3.5-5.1)
[2019-01-18] MEDS: predniSONE 1 MG TABLET PO SCH (09:22)
[2019-01-18] MEDS: Ringers Solution, Lactated 1,000 ML IVC SCH ×2 (14:21→23:34)
--- NOTE | 2019-01-18 14:39 | Internal Med Progress Note ---
<Manuel Crow - Last Filed: 01/18/19 15:13> Hospitalist Progress Note - Encounter Date of Encounter: 01/18/19 - Exam Vitals: Temp Pulse Resp BP Pulse Ox 98.0 F 75 100 120/61 18 01/18/19 07:05 01/18/19 13:00 01/18/19 13:00 01/18/19 13:00 01/18/19 13:00 - Assessment and Plan (1) Acute blood loss anemia Current Visit: No Status: Acute (2) Acute diverticulitis Current Visit: Yes Status: Acute (3) Paroxysmal atrial fibrillation Current Visit: No Status: Chronic (4) Sarcoidosis Current Visit: No Status: Chronic (5) CKD (chronic kidney disease) stage 4, GFR 15-29 ml/min Current Visit: No Status: Acute (6) Vasovagal near syncope Current Visit: Yes Status: Acute (7) DVT prophylaxis Current Visit: Yes Status: Acute - Time Spent with Patient Total time spent is greater than 50% in coordination of care (as documented) at patient's floor/unit and/or counseling patient: Internal Medicine: Result - Labs CBC & Chem 7: 01/18/19 14:15 01/18/19 04:00 Labs: Short CBC 01/17/19 01/17/19 01/18/19 Range/Units 16:13 20:10 01:50 WBC (4.3-11.1) K/mcL Hgb 9.8 L 8.4 L 9.2 L (12.9-16.9) g/dL Hct 30.7 L 26.4 L 27.8 L (37.5-50.1) % Plt Count (140-400) K/mcL Neutrophils # (1.6-8.9) K/mcL 01/18/19 01/18/19 Range/Units 08:40 14:15 WBC 10.5 D (4.3-11.1) K/mcL Hgb 9.0 L 8.8 L (12.9-16.9) g/dL Hct 26.7 L 26.5 L (37.5-50.1) % Plt Count 109 L (140-400) K/mcL Neutrophils # 8.7 (1.6-8.9) K/mcL BMP 01/18/19 04:00 Sodium 142 Potassium 4.2 Chloride 112 H Carbon Dioxide 22 L BUN 29 H Creatinine 2.46 H Glucose 99 Calcium 6.7 L - ABG Interpretation ABG results: PT/INR, D-dimer PT 11.8 Seconds (9.4-12.1) 01/18/19 08:40 - Impressions Impressions Chest X-Ray 01/17/19 19:02 IMPRESSION: 1. No pneumothorax status post right IJ central venous line placement 2. Gastric tube coiled in the distal esophagus D/ / Paul Melendez MD / Paul Melendez MD Interpreting Provider: Paul Melendez MD X-Ray 01/17/19 19:51 IMPRESSION: Enteric tube with distal aspect curled in the area the gastroesophageal junction. Repositioning is recommended. D/ / Scarlett Palma Cha, MD / Scarlett Palma Cha, MD Interpreting Provider: Scarlett Palma Cha, MD X-Ray 01/17/19 21:01 IMPRESSION: The enteric tube is in good position in the stomach. D/ / Tyrone Langford MD / Tyrone Langford MD Interpreting Provider: Tyrone Langford MD Consult Discharge Plan - Plan Referrals: Isaías Kaminski DO [Primary Care Provider] - - Attending Attestation I examined this patient and my medical decision-making was reviewed with the Resident Physician. I agree with the documented findings, disposition and treatment plan as described except to the extent set forth below. <Gustavo Gao - Last Filed: 01/18/19 17:57> Hospitalist Progress Note - Encounter Date of Encounter: 01/18/19 Time of Encounter: 09:15 - Subjective Interval History: Patient seen and examined at bedside; states he is feeling well today. He denies having any weakness, dizziness, fatigue, or abdominal pain. Denies having any bloody bowel movements the last 24 hours. Patient underwent colonoscopy earlier. Multiple areas of diverticulosis were found. GI still following. They recommended that patient be kept nothing by mouth except ice chips. He has no further complaints. - Exam Vitals: Temp Pulse Resp BP Pulse Ox 98.0 F 75 100 120/61 18 01/18/19 07:05 01/18/19 13:00 01/18/19 13:00 01/18/19 13:00 01/18/19 13:00 Exam: General: conversant, no acute distress Head: atraumatic, normocephalic Eye: PERRL, EOMI, conjuntiva pink, sclera anicteric Neck: Supple, trachea midline; No lymphadenopathy; right-sided IJ CVC present Respiratory: CTAB. No accessory muscle use, wheezes, rales, or rhonchi Cardiovascular: RRR, +S1, +S2; no murmurs, rubs, gallops Abdomen: Soft, nontender Extremities: warm, radial pulses palpable and symmetrical Psychiatric: Normal affect, normal mood Skin: Dry, intact - Assessment and Plan (1) GI bleed Current Visit: Yes Status: Acute Assessment and Plan: - Patient presented after multiple bloody bowel movements - Patient does have a known history of diverticular bleeds in the past requiring transfusion - CT scan of the abdomen and pelvis demonstrated mild pericolonic inflammation involving the distal ascending colon - Patient became hypotensive during this admission requiring transfusion of packed red blood cells; was transferred to ICU - Right-sided CVC was placed - GI was consulted for colonoscopy; per endoscopy report: Diverticulosis present is present in the entire examined colon. There are nonbleeding internal hemorrhoids. No specimens were collected. The recommendation is to repeat colonoscopy in 1 day if the patient continues to bleed Plan: - NPO except ice chips per the recommendations of GI - IV Protonix 40 mg IV every 12 hours (2) Colitis Current Visit: Yes Status: Acute Assessment and Plan: - As per CT scan of the abdomen and pelvis - Continue Zosyn - GI is following; would appreciate further recommendations (3) Anemia Current Visit: Yes Status: Acute Assessment and Plan: - Likely secondary to blood loss from diverticular bleed - GI is following; colonoscopy performed today demonstrated multiple areas of diverticulosis - Repeat H&H (4) Chronic kidney disease Current Visit: Yes Status: Acute Assessment and Plan: - Patients creatinine is 2.46, which is his baseline - Repeat a.m. labs - Time Spent with Patient Total time spent is greater than 50% in coordination of care (as documented) at patient's floor/unit and/or counseling patient: Internal Medicine: Result - Labs CBC & Chem 7: 01/18/19 14:15 01/18/19 04:00 Labs: Short CBC 01/17/19 01/17/19 01/18/19 Range/Units 16:13 20:10 01:50 WBC (4.3-11.1) K/mcL Hgb 9.8 L 8.4 L 9.2 L (12.9-16.9) g/dL Hct 30.7 L 26.4 L 27.8 L (37.5-50.1) % Plt Count (140-400) K/mcL Neutrophils # (1.6-8.9) K/mcL 01/18/19 Range/Units 08:40 WBC 10.5 D (4.3-11.1) K/mcL Hgb 9.0 L (12.9-16.9) g/dL Hct 26.7 L (37.5-50.1) % Plt Count 109 L (140-400) K/mcL Neutrophils # 8.7 (1.6-8.9) K/mcL BMP 01/18/19 04:00 Sodium 142 Potassium 4.2 Chloride 112 H Carbon Dioxide 22 L BUN 29 H Creatinine 2.46 H Glucose 99 Calcium 6.7 L - ABG Interpretation ABG results: PT/INR, D-dimer PT 11.8 Seconds (9.4-12.1) 01/18/19 08:40 - Impressions Impressions Chest X-Ray 01/17/19 19:02 IMPRESSION: 1. No pneumothorax status post right IJ central venous line placement 2. Gastric tube coiled in the distal esophagus D/ / Paul Melendez MD / Paul Melendez MD Interpreting Provider: Paul Melendez MD X-Ray 01/17/19 19:51 IMPRESSION: Enteric tube with distal aspect curled in the area the gastroesophageal junction. Repositioning is recommended. D/ / Scarlett Palma Cha, MD / Scarlett Palma Cha, MD Interpreting Provider: Scarlett Palma Cha, MD X-Ray 01/17/19 21:01
[2019-01-18 14:42] LABS: Hematocrit 26.5 % (37.5-50.1); Hemoglobin 8.8 g/dL (12.9-16.9)
[2019-01-18] MEDS ORDERED: *HR* Metoprolol 5 MG/5 ML VIAL IVP ONE (18:14)
[2019-01-18] MEDS: clonazePAM 1 MG TABLET PO PRN (20:21)
[2019-01-18] MEDS: Mirtazapine 15 MG TABLET PO SCH (20:22)
[2019-01-18 20:55] LABS: Hematocrit 24.7 % (37.5-50.1); Hemoglobin 8.2 g/dL (12.9-16.9)
[2019-01-19 02:42] LABS: Hematocrit 22.3 % (37.5-50.1); Hemoglobin 7.2 g/dL (12.9-16.9)
[2019-01-19] MEDS ORDERED: 0.9 % Sodium Chloride 250 ML ONE (03:23)
[2019-01-19 04:01] LABS: Basophils % 0.3 %; Eosinophils # 0.1 K/mcL (0.0-0.6); Eosinophils % 1.3 %; Hemoglobin 7.5 g/dL (12.9-16.9); Immature Granulocytes % 0.3 % (0-4); Lymphocytes # 1.1 K/mcL (0.6-4.6); Lymphocytes % 18.7 %; Mean Corpuscular HGB Conc 32.6 g/dL (31.6-35.5); Mean Corpuscular Hemoglobin 31.4 pg (28.0-33.3); Mean Corpuscular Volume 96.2 fL (83.0-100.0); Mean Platelet Volume 10.6 fL (9.4-12.4); Monocytes # 0.5 K/mcL (0.0-1.3); Neutrophils # 4.2 K/mcL (1.6-8.9); Platelet Count 108 K/mcL (140-400); Red Blood Count 2.39 M/mcL (4.19-5.50); Red Cell Distribution Width 14.6 % (11.5-14.5); Segmented Neutrophils % 70.4 %
[2019-01-19 04:17] LABS: Calcium 6.4 mg/dL (8.6-10.3); Potassium 3.9 mEq/L (3.5-5.1)
[2019-01-19] MEDS: Pantoprazole 40 MG VIAL IVP SCH ×2 (06:36→18:39)
[2019-01-19] MEDS: Levothyroxine 25 MCG TABLET PO SCH (06:37)
[2019-01-19 08:42] LABS: Hematocrit 26.1 % (37.5-50.1); Hemoglobin 8.6 g/dL (12.9-16.9)
[2019-01-19] MEDS: Piperacillin/Tazobactam 3.375 GM in 0.9 % Sodium Chloride Mini Bag 100 ML IVPB SCH ×2 (08:59→16:45)
[2019-01-19] MEDS: Cholecalciferol (D-3) 1,000 UNIT TABLET PO SCH (09:00)
[2019-01-19] MEDS: predniSONE 1 MG TABLET PO SCH (09:00)
[2019-01-19] MEDS: *HR* Amiodarone 200 MG TABLET PO SCH (09:01)
[2019-01-19] MEDS: Ringers Solution, Lactated 1,000 ML IVC SCH ×2 (09:06→16:34)
--- NOTE | 2019-01-19 13:07 | Internal Med Progress Note ---
<Gustavo Gao - Last Filed: 01/19/19 13:52> Hospitalist Progress Note - Encounter Date of Encounter: 01/19/19 Time of Encounter: 10:20 - Subjective Interval History: Patient is feeling well today. He has had one bowel movement this morning, and states that there was no blood. Vital signs have been stable. Patient will be transferred out of the ICU to [facility]. Because patients blood pressure has improved, we will remove CVC. Denies abdominal pain, weakness, fatigue, dizziness, nausea, or vomiting. He has no complaints at this time. - Exam Vitals: Temp Pulse Resp BP Pulse Ox 97.7 F 96 14 124/79 96 01/19/19 11:11 01/19/19 09:00 01/19/19 09:00 01/19/19 09:00 01/19/19 09:00 Exam: General: conversant, no acute distress Head: atraumatic, normocephalic Eye: PERRL, EOMI, conjuntiva pink, sclera anicteric Neck: Supple, trachea midline; No lymphadenopathy; right-sided IJ CVC present Respiratory: CTAB. No accessory muscle use, wheezes, rales, or rhonchi Cardiovascular: RRR, +S1, +S2; no murmurs, rubs, gallops Abdomen: Soft, nontender Extremities: warm, radial pulses palpable and symmetrical Psychiatric: Normal affect, normal mood Skin: Dry, intact - Assessment and Plan (1) GI bleed Current Visit: Yes Status: Acute Assessment and Plan: - Patient initially presented after multiple bloody bowel movements - Known history of diverticular bleeds in the past requiring transfusion - CT scan of the abdomen and pelvis demonstrated mild pericolonic inflammation involving the distal ascending colon - Patient became hypotensive during this admission requiring transfusion of packed red blood cells; was transferred to ICU - Right-sided CVC was placed - GI was consulted for colonoscopy; per endoscopy report: Diverticulosis present is present in the entire examined colon. There are nonbleeding internal hemorrhoids. No specimens were collected. - Hb had dropped since yesterday to 7.2; received 1 U PRBCs; repeat Hb was 7.5 - Last blood pressure was 102/66 Plan: - NPO except ice chips per the recommendations of GI - IV Protonix 40 mg IV every 12 hours (2) Colitis Current Visit: Yes Status: Acute Assessment and Plan: - As per CT scan of the abdomen and pelvis - Continue Zosyn (day 4) (3) Anemia Current Visit: Yes Status: Acute Assessment and Plan: - Likely secondary to blood loss from diverticular bleed - Repeat H&H has been ordered this morning Q6; will transfuse if necessary (4) Chronic kidney disease Current Visit: Yes Status: Acute Assessment and Plan: - Patients creatinine is 2.15, which is his near his baseline - Repeat a.m. labs - Time Spent with Patient Total time spent is greater than 50% in coordination of care (as documented) at patient's floor/unit and/or counseling patient: Internal Medicine: Result - Labs CBC & Chem 7: 01/19/19 08:34 01/19/19 03:51 Labs: Short CBC 01/18/19 01/18/19 01/19/19 Range/Units 14:15 20:45 02:34 WBC (4.3-11.1) K/mcL Hgb 8.8 L 8.2 L 7.2 L (12.9-16.9) g/dL Hct 26.5 L 24.7 L 22.3 L (37.5-50.1) % Plt Count (140-400) K/mcL Neutrophils # (1.6-8.9) K/mcL 01/19/19 01/19/19 Range/Units 03:51 08:34 WBC 6.0 (4.3-11.1) K/mcL Hgb 7.5 L 8.6 L (12.9-16.9) g/dL Hct 23.0 L 26.1 L (37.5-50.1) % Plt Count 108 L (140-400) K/mcL Neutrophils # 4.2 (1.6-8.9) K/mcL BMP 01/19/19 03:51 Sodium 140 Potassium 3.9 Chloride 115 H Carbon Dioxide 22 L BUN 21 Creatinine 2.15 H Glucose 82 Calcium 6.4 L - ABG Interpretation ABG results: PT/INR, D-dimer PT 11.8 Seconds (9.4-12.1) 01/18/19 08:40 Consult Discharge Plan - Plan Referrals: Isaías Kaminski DO [Primary Care Provider] - <Manuel Crow - Last Filed: 01/19/19 15:06> Hospitalist Progress Note - Encounter Date of Encounter: 01/19/19 - Exam Vitals: Temp Pulse Resp BP Pulse Ox 97.7 F 96 14 124/79 96 01/19/19 11:11 01/19/19 09:00 01/19/19 09:00 01/19/19 09:00 01/19/19 09:00 - Assessment and Plan (1) Acute blood loss anemia Current Visit: No Status: Acute (2) Acute diverticulitis Current Visit: Yes Status: Acute (3) Paroxysmal atrial fibrillation Current Visit: No Status: Chronic (4) Sarcoidosis Current Visit: No Status: Chronic (5) CKD (chronic kidney disease) stage 4, GFR 15-29 ml/min Current Visit: No Status: Acute (6) Vasovagal near syncope Current Visit: Yes Status: Acute (7) DVT prophylaxis Current Visit: Yes Status: Acute - Time Spent with Patient Total time spent is greater than 50% in coordination of care (as documented) at patient's floor/unit and/or counseling patient: Internal Medicine: Result - Labs CBC & Chem 7: 01/19/19 14:14 01/19/19 03:51 Labs: Short CBC 01/18/19 01/19/19 01/19/19 Range/Units 20:45 02:34 03:51 WBC 6.0 (4.3-11.1) K/mcL Hgb 8.2 L 7.2 L 7.5 L (12.9-16.9) g/dL Hct 24.7 L 22.3 L 23.0 L (37.5-50.1) % Plt Count 108 L (140-400) K/mcL Neutrophils # 4.2 (1.6-8.9) K/mcL 01/19/19 01/19/19 Range/Units 08:34 14:14 WBC (4.3-11.1) K/mcL Hgb 8.6 L 9.2 L (12.9-16.9) g/dL Hct 26.1 L 28.0 L (37.5-50.1) % Plt Count (140-400) K/mcL Neutrophils # (1.6-8.9) K/mcL BMP 01/19/19 03:51 Sodium 140 Potassium 3.9 Chloride 115 H Carbon Dioxide 22 L BUN 21 Creatinine 2.15 H Glucose 82 Calcium 6.4 L - ABG Interpretation ABG results: PT/INR, D-dimer PT 11.8 Seconds (9.4-12.1) 01/18/19 08:40 - Attending Attestation I examined this patient and my medical decision-making was reviewed with the Resident Physician. I agree with the documented findings, disposition and treatment plan as described except to the extent set forth below.
[2019-01-19] MEDS ORDERED: Naloxone 0.4 MG/ML INJ IVP PRN (14:24)
[2019-01-19] MEDS ORDERED: clonazePAM 1 MG TABLET PO PRN (14:24)
[2019-01-19 14:39] LABS: Hemoglobin 9.2 g/dL (12.9-16.9)
[2019-01-19 21:12] LABS: Hematocrit 25.7 % (37.5-50.1); Hemoglobin 8.5 g/dL (12.9-16.9)
[2019-01-19] MEDS: clonazePAM 1 MG TABLET PO PRN (22:08)
[2019-01-19] MEDS: Mirtazapine 15 MG TABLET PO SCH (22:09)
[2019-01-20] MEDS: Ringers Solution, Lactated 1,000 ML IVC SCH ×2 (00:07→10:30)
[2019-01-20] MEDS: Piperacillin/Tazobactam 3.375 GM in 0.9 % Sodium Chloride Mini Bag 100 ML IVPB SCH ×2 (00:07→10:29)
[2019-01-20] MEDS: Levothyroxine 25 MCG TABLET PO SCH (06:10)
[2019-01-20] MEDS: Pantoprazole 40 MG VIAL IVP SCH ×2 (06:10→18:28)
[2019-01-20 09:51] LABS: Basophils % 0.2 %; Eosinophils # 0.1 K/mcL (0.0-0.6); Eosinophils % 1.5 %; Hematocrit 26.7 % (37.5-50.1); Hemoglobin 8.6 g/dL (12.9-16.9); Immature Granulocytes % 0.5 % (0-4); Lymphocytes % 18.3 %; Mean Corpuscular HGB Conc 32.2 g/dL (31.6-35.5); Mean Corpuscular Hemoglobin 30.9 pg (28.0-33.3); Mean Platelet Volume 10.6 fL (9.4-12.4); Monocytes # 0.5 K/mcL (0.0-1.3); Neutrophils # 3.9 K/mcL (1.6-8.9); Platelet Count 118 K/mcL (140-400); Red Blood Count 2.78 M/mcL (4.19-5.50); Red Cell Distribution Width 14.5 % (11.5-14.5); Segmented Neutrophils % 70.5 %
[2019-01-20 10:05] LABS: Calcium 7.4 mg/dL (8.6-10.3); Potassium 3.9 mEq/L (3.5-5.1)
[2019-01-20] MEDS: Cholecalciferol (D-3) 1,000 UNIT TABLET PO SCH (10:28)
[2019-01-20] MEDS: *HR* Amiodarone 200 MG TABLET PO SCH (10:28)
[2019-01-20] MEDS: predniSONE 1 MG TABLET PO SCH (10:28)
--- NOTE | 2019-01-20 12:11 | Internal Med Progress Note ---
Hospitalist Progress Note - Encounter Date of Encounter: 01/20/19 Time of Encounter: 12:09 - Subjective Interval History: No acute events. Patient appetite good. Denies melena, hematochezia. - Exam Vitals: Temp Pulse Resp BP Pulse Ox 97.9 F 67 14 124/72 95 01/20/19 11:24 01/20/19 11:24 01/20/19 11:24 01/20/19 11:24 01/20/19 11:24 Exam: General: conversant, no acute distress Head: atraumatic, normocephalic Eye: PERRL, EOMI, conjuntiva pink, sclera anicteric Neck: Supple, trachea midline; No lymphadenopathy; right-sided IJ CVC present Respiratory: CTAB. No accessory muscle use, wheezes, rales, or rhonchi Cardiovascular: RRR, +S1, +S2; no murmurs, rubs, gallops Abdomen: Soft, nontender Extremities: warm, radial pulses palpable and symmetrical Psychiatric: Normal affect, normal mood Skin: Dry, intact - Assessment and Plan (1) Acute blood loss anemia Current Visit: No Status: Acute Assessment and Plan: secondary to GIB ( most likely a diverticular bleed ) rule out other etiology ( UGIB vs LGIB) protonix 40 mg daily hold antiplatelets, anticoagulation and NSAIDs transfuse <8 H&H improved will not give PRBCs Suspect diverticular bleed Transition to PO abx today, Augmentin Hold IVF, advance diet IV Venofer today. (2) Acute diverticulitis Current Visit: Yes Status: Acute Assessment and Plan: ascending colon diverticulitis CT A/P: Findings favoring acute diverticulitis involving the distal ascending colon. VSS, no acute bleed, no fevers, no leukocytosis. Transition to Augmentin today (3) Paroxysmal atrial fibrillation Current Visit: No Status: Chronic Assessment and Plan: continue with amiodarone QTC 433 on ASA only - held due to GIB- resume once cleared by surgery not on OAC- reports he follow with Dr. draper who has kept him on ASA. Patient tells me this is due to prior history of GIB Will need to follow-up as outpatient to decide about resuming aspirin, risks outweigh benefits at this current time. (4) Sarcoidosis Current Visit: No Status: Chronic Assessment and Plan: on prednisone 4 mg continue (5) CKD (chronic kidney disease) stage 4, GFR 15-29 ml/min Current Visit: No Status: Acute Assessment and Plan: Cr. at baseline continue to monitor renal functions avoid nephrotoxic medications. (6) Vasovagal near syncope Current Visit: Yes Status: Acute Assessment and Plan: secondary to acute GIB secondary to diverticulitis. continue with management as above echocardiogram done cardiac monitoring (7) DVT prophylaxis Current Visit: Yes Status: Acute Assessment and Plan: scds - Time Spent with Patient Total time spent is greater than 50% in coordination of care (as documented) at patient's floor/unit and/or counseling patient: Internal Medicine: Result - Labs CBC & Chem 7: 01/20/19 09:29 01/20/19 09:29 Labs: Short CBC 01/19/19 01/19/19 01/20/19 Range/Units 14:14 20:54 09:29 WBC 5.5 (4.3-11.1) K/mcL Hgb 9.2 L 8.5 L 8.6 L (12.9-16.9) g/dL Hct 28.0 L 25.7 L 26.7 L (37.5-50.1) % Plt Count 118 L (140-400) K/mcL Neutrophils # 3.9 (1.6-8.9) K/mcL BMP 01/20/19 09:29 Sodium 144 Potassium 3.9 Chloride 112 H Carbon Dioxide 24 BUN 15 Creatinine 2.10 H Glucose 82 Calcium 7.4 L - ABG Interpretation ABG results: PT/INR, D-dimer PT 11.8 Seconds (9.4-12.1) 01/18/19 08:40 Consult Discharge Plan - Plan Referrals: Isaías Kaminski DO [Primary Care Provider] -
[2019-01-20] MEDS: Iron Sucrose Complex 250 MG in 0.9 % Sodium Chloride 250 ML IVPB SCH (15:06)
[2019-01-20] MEDS: Mirtazapine 15 MG TABLET PO SCH (22:18)
[2019-01-20] MEDS: clonazePAM 1 MG TABLET PO PRN (22:18)
[2019-01-21] MEDS: Pantoprazole 40 MG VIAL IVP SCH (05:55)
[2019-01-21] MEDS: Levothyroxine 25 MCG TABLET PO SCH (05:55)
[2019-01-21 07:18] LABS: Basophils % 0.2 %; Eosinophils # 0.1 K/mcL (0.0-0.6); Eosinophils % 1.1 %; Hematocrit 26.5 % (37.5-50.1); Hemoglobin 8.7 g/dL (12.9-16.9); Immature Granulocytes % 0.9 % (0-4); Lymphocytes # 0.9 K/mcL (0.6-4.6); Lymphocytes % 16.5 %; Mean Corpuscular HGB Conc 32.8 g/dL (31.6-35.5); Mean Corpuscular Hemoglobin 31.6 pg (28.0-33.3); Mean Corpuscular Volume 96.4 fL (83.0-100.0); Mean Platelet Volume 10.1 fL (9.4-12.4); Monocytes # 0.5 K/mcL (0.0-1.3); Neutrophils # 4.1 K/mcL (1.6-8.9); Platelet Count 128 K/mcL (140-400); Red Blood Count 2.75 M/mcL (4.19-5.50); Red Cell Distribution Width 14.3 % (11.5-14.5); Segmented Neutrophils % 72.3 %
[2019-01-21] MEDS: Cholecalciferol (D-3) 1,000 UNIT TABLET PO SCH (07:31)
[2019-01-21] MEDS: predniSONE 1 MG TABLET PO SCH (07:31)
[2019-01-21] MEDS: *HR* Amiodarone 200 MG TABLET PO SCH (07:31)
[2019-01-21 07:38] LABS: Calcium 7.7 mg/dL (8.6-10.3); Potassium 3.8 mEq/L (3.5-5.1)
[2019-01-21] MEDS: Iron Sucrose Complex 250 MG in 0.9 % Sodium Chloride 250 ML IVPB SCH (07:55)
[2019-01-21] MEDS ORDERED: Calcium Gluconate 2,000 MG in D5% in Water 100 ML IVPB ONE (08:11)
[2019-01-21 08:15] VITALS: BP 129/71
--- NOTE | 2019-01-21 09:25 | Discharge Summary ---
- NOTES TO OUTPATIENT PROVIDER Notes to Outpatient Provider: --Follow-up CBC and BMP in 3-5 days. -- Assess if patient should resume aspirin or not. Will be held on discharge. Orders not resulted at time of discharge: Pending orders 01/16/19 14:20 Culture,Blood [BC] Stat 01/17/19 06:00 ECG 12 lead ECG [ECG] AM 0600 01/22/19 04:00 BMP [Basic Metabolic Panel] AM 0400 Complete Blood Count [HEME] AM 0400 01/23/19 04:00 BMP [Basic Metabolic Panel] AM 0400 Complete Blood Count [HEME] AM 0400 Date of Encounter: 01/21/19 Time of Encounter: 09:24 - Discharge Diagnosis (1) Acute blood loss anemia Priority: Primary Status: Acute (2) Acute diverticulitis Priority: Secondary Status: Acute (3) Paroxysmal atrial fibrillation Priority: Secondary Status: Chronic (4) Sarcoidosis Priority: Secondary Status: Chronic (5) CKD (chronic kidney disease) stage 4, GFR 15-29 ml/min Priority: Secondary Status: Acute (6) Vasovagal near syncope Priority: Secondary Status: Acute (7) DVT prophylaxis Priority: Secondary Status: Acute Hospital course: Mr. Blackwood is a 68 year old male with history of PAF, sarcoidosis on chronic steroids and diverticulosis with history of diverticular bleeding in 2017 requiring blood transfusion presented to the Ed with complaint of BRBPR. as per patient he woke up this early AM and had multiple episode of painless BRBPR that contained clots. he denies abdominal pain, N/v/D, chest pain, palpitations or SOB. episode started suddenly and he has had atleast 4-5 episodes last episode was in the ED. he reports that he became diaphretic and pale and almost passed out with the last episode that occured in the ED. no one else in the family is sick not has gastrointestinal symptoms. he denies anticoagulation use however is on ASA for PAF. he has had similar symptoms in the past and was told he has had diverticulosis. last colonoscopy was in 2017 for similar symptoms. he cannot recall alleviating or aggravating factors. In the ED CT A/P was positive for ascending colon diverticulitis, surgery consulted and he was endorsed for admission for further management. as per ED physcian he did develope a presynopal vasovagal episode which he quickly recovered after he was on a bed side commode and had an episode of large of amount of BRBPR. Patient was started on Zosyn for diverticulitis, started on IV Protonix. GI was consulted. He was monitored on telemetry and on initial presentation he was hemodynamically stable and there was no acute drop in hemoglobin. However, patient did have severe episodes of bright red blood in bowel movements. He became hypotensive with SBP in 70s, with an acute drop in hemoglobin and he was transferred to ICU and transfused 4 units of PRBC. An EGD was done that showed multiple diverticuli and internal hemorrhoids but no active bleeds. Patient was hemodynamically stable after fluid support and hemoglobin was stable as well. He was able to advance diet. He was discharged home in stable condition to finish 5 additional days of Augmentin. Discharge time 40 min. - Time Spent with Patient Total time spent providing and/or coordinating discharge services: Time spent: Greater than 30 minutes - Discharge Medications Prescriptions: New Amoxicillin/Clavulanate [Augmentin] 875 mg PO BIDWM #10 tablet No Action Escitalopram [Lexapro] 20 mg PO DAILY Aspirin Enteric Coated [Aspirin EC] 81 mg PO DAILY Simvastatin [Zocor] 10 mg PO HS clonazePAM [Klonopin] 2 mg PO HS Amiodarone [Cordarone] 200 mg PO DAILY #30 tablet Levothyroxine [Synthroid] 25 mcg PO 0630 Mirtazapine [Remeron] 45 mg PO HS Fexofenadine HCl [Allergy Relief] 180 mg PO DAILY Alendronate Sodium [Fosamax] 35 mg PO SA clonazePAM [Clonazepam] 1 mg PO QAM Cholecalciferol (D-3) [Vitamin D] 3,000 unit PO DAILY predniSONE [PredniSONE] 4 mg PO DAILY Home Medications: Aspirin Enteric Coated [Aspirin EC] 81 mg PO DAILY 04/12/16 [History] Escitalopram [Lexapro] 20 mg PO DAILY 04/12/16 [History] Simvastatin [Zocor] 10 mg PO HS 04/12/16 [History] clonazePAM [Klonopin] 2 mg PO HS 04/12/16 [History] Amiodarone [Cordarone] 200 mg PO DAILY #30 tablet 05/29/16 [Rx] Levothyroxine [Synthroid] 25 mcg PO 0630 06/06/17 [History] Mirtazapine [Remeron] 45 mg PO HS 06/06/17 [History] Alendronate Sodium [Fosamax] 35 mg PO SA 01/17/19 [History] Cholecalciferol (D-3) [Vitamin D] 3,000 unit PO DAILY 01/17/19 [History] Fexofenadine HCl [Allergy Relief] 180 mg PO DAILY 01/17/19 [History] clonazePAM [Clonazepam] 1 mg PO QAM 01/17/19 [History] predniSONE [PredniSONE] 4 mg PO DAILY 01/17/19 [History] Amoxicillin/Clavulanate [Augmentin] 875 mg PO BIDWM #10 tablet 01/21/19 [Rx] Allergies/Adverse Reactions: Allergy/AdvReac Type Severity Reaction Status Date / Time No Known Allergies Allergy Verified 08/01/17 13:59 Date of admission: 01/18/19 17:10 Primary care physician: Isaías Kaminski Consults: 01/16/19 17:13 Consult to Gastroenterology [CONS] Routine Consulting Provider: Gastroenterology Birgit Reason for Consult: acute GIB Call Completed: No 01/17/19 18:43 Consult to Surgery [CONS] Routine Consulting Provider: Joel Ceballos Reason for Consult: acute GI bleed, hypotension Call Completed: Yes Discharging clinician: Manuel Crow - Constitutional Vitals: Temp Pulse Resp BP Pulse Ox 98.1 F 66 15 129/71 97 01/21/19 04:29 01/21/19 08:14 01/21/19 08:14 01/21/19 08:14 01/21/19 08:14 Exam: General: conversant, no acute distress Head: atraumatic, normocephalic Eye: PERRL, EOMI, conjuntiva pink, sclera anicteric Neck: Supple, trachea midline; No lymphadenopathy; right-sided IJ CVC present Respiratory: CTAB. No accessory muscle use, wheezes, rales, or rhonchi Cardiovascular: RRR, +S1, +S2; no murmurs, rubs, gallops Abdomen: Soft, nontender Extremities: warm, radial pulses palpable and symmetrical Psychiatric: Normal affect, normal mood Skin: Dry, intact - Patient Status Disposition: Home, Self-Care Condition: Good Functional capacity at discharge: independent ambulation Overall status at discharge: patient is back to baseline - Discharge Instructions Follow Up With: Isaías Kaminski DO [Primary Care Provider] - (Physicians office will follow- up with the patient on the phone. ) - Diet and Activity Activity: increase activity as tolerated Diet: advance to your usual diet
== END 2019-01-21 13:53 | disposition home or self-care (01) | DRG 377 ==
LOC: EMEROOARM 09:11 → 3ANU 09:11 → SUATTDRO 14:14 → 3ANU 15:18 → ICNU 01-17 18:13 → 2NENU 01-19 19:45
PROVIDERS: ADMIT Internal Medicine; ATTEND Student in an Organized Health Care Education/Training Program

== ENCOUNTER 2019-01-23 11:05 | Observation (INO) ==
[2019-01-23] MEDS ORDERED: 0.9 % Sodium Chloride 1,000 ML IVC ONE (12:13)
[2019-01-23 12:21] LABS: Basophils % 0.2 %; Eosinophils # 0.1 K/mcL (0.0-0.6); Eosinophils % 0.9 %; Hematocrit 28.1 % (37.5-50.1); Hemoglobin 9.2 g/dL (12.9-16.9); Immature Granulocytes % 0.5 % (0-4); Lymphocytes # 0.8 K/mcL (0.6-4.6); Lymphocytes % 12.8 %; Mean Corpuscular HGB Conc 32.7 g/dL (31.6-35.5); Mean Corpuscular Hemoglobin 32.3 pg (28.0-33.3); Mean Corpuscular Volume 98.6 fL (83.0-100.0); Mean Platelet Volume 10.2 fL (9.4-12.4); Monocytes # 0.6 K/mcL (0.0-1.3); Monocytes % 8.7 %; Neutrophils # 4.9 K/mcL (1.6-8.9); Platelet Count 172 K/mcL (140-400); Red Blood Count 2.85 M/mcL (4.19-5.50); Red Cell Distribution Width 14.4 % (11.5-14.5); Segmented Neutrophils % 76.9 %; White Blood Count 6.3 K/mcL (4.3-11.1)
[2019-01-23 12:31] LABS: INR 0.9; Prothrombin Time 10.1 Seconds (9.4-12.1)
[2019-01-23 12:33] LABS: Activated Partial Thrombo Time 30.9 Seconds (26.0-36.0)
[2019-01-23] MEDS ORDERED: Naloxone 0.4 MG/ML INJ IVP PRN (12:48)
[2019-01-23 12:51] LABS: Blood Urea Nitrogen 16 mg/dL (8-23); Carbon Dioxide 26 mEq/L (23-29); Chloride 108 mEq/L (98-107); Potassium 3.9 mEq/L (3.5-5.1); Sodium 139 mEq/L (136-145)
[2019-01-23 12:52] LABS: Alanine Aminotransferase 9 Units/L (7-52); Albumin 3.3 g/dL (3.5-5.7); Albumin/Globulin Ratio 1.7 (1.1-2.2); Alkaline Phosphatase 37 Units/L (34-104); Aspartate Amino Transferase 18 Units/L (13-39); BUN/Creatinine Ratio 7 (6-26); Bilirubin,Total 0.3 mg/dL (0.3-1.0); Calcium 8.2 mg/dL (8.6-10.3); Glucose 94 mg/dL (70-105); Osmolality,Calculated 289 (280-300); Total Protein 5.3 g/dL (6.4-8.9); Troponin I < 0.03 ng/mL (< 0.04); eGFR For African Americans 36 (> 60); eGFR For Non-African Americans 30 (> 60)
[2019-01-23 14:01] LABS: Basophils % 0.1 %; Eosinophils % 0.1 %; Hematocrit 28.3 % (37.5-50.1); Hemoglobin 9.1 g/dL (12.9-16.9); Immature Granulocytes % 0.7 % (0-4); Lymphocytes # 0.6 K/mcL (0.6-4.6); Lymphocytes % 8.5 %; Mean Corpuscular HGB Conc 32.2 g/dL (31.6-35.5); Mean Corpuscular Hemoglobin 31.9 pg (28.0-33.3); Mean Corpuscular Volume 99.3 fL (83.0-100.0); Mean Platelet Volume 10.2 fL (9.4-12.4); Monocytes # 0.5 K/mcL (0.0-1.3); Monocytes % 7.5 %; Neutrophils # 5.7 K/mcL (1.6-8.9); Platelet Count 169 K/mcL (140-400); Red Blood Count 2.85 M/mcL (4.19-5.50); Red Cell Distribution Width 14.4 % (11.5-14.5); Segmented Neutrophils % 83.1 %; White Blood Count 6.8 K/mcL (4.3-11.1)
[2019-01-23] MEDS: 0.9 % Sodium Chloride 1,000 ML IVC SCH (16:22)
[2019-01-23] MEDS ORDERED: SODIUM CHLORIDE/NAHCO3/KCL/PEG 4,000 ML SOLN.RECON PO ONE (17:38)
[2019-01-23] MEDS: MetroNIDAZOLE 500 MG/100 ML 500 MG/100 ML BAG IVPB SCH (18:51)
[2019-01-23] MEDS ORDERED: 0.9 % Sodium Chloride 250 ML ONE (20:58)
[2019-01-23] MEDS: Mirtazapine 15 MG TABLET PO SCH (21:22)
[2019-01-23] MEDS: clonazePAM 1 MG TABLET PO SCH ×2 (21:22→23:31)
[2019-01-23 21:56] LABS: Basophils % 0.2 %; Eosinophils % 0.5 %; Hematocrit 27.8 % (37.5-50.1); Immature Granulocytes % 0.8 % (0-4); Lymphocytes % 14.8 %; Mean Corpuscular HGB Conc 32.4 g/dL (31.6-35.5); Mean Corpuscular Hemoglobin 31.7 pg (28.0-33.3); Mean Corpuscular Volume 97.9 fL (83.0-100.0); Mean Platelet Volume 10.3 fL (9.4-12.4); Monocytes # 0.5 K/mcL (0.0-1.3); Monocytes % 7.3 %; Platelet Count 179 K/mcL (140-400); Red Blood Count 2.84 M/mcL (4.19-5.50); Red Cell Distribution Width 14.6 % (11.5-14.5); Segmented Neutrophils % 76.4 %; White Blood Count 6.6 K/mcL (4.3-11.1)
[2019-01-24] MEDS: MetroNIDAZOLE 500 MG/100 ML 500 MG/100 ML BAG IVPB SCH ×3 (01:53→17:36)
[2019-01-24] MEDS: 0.9 % Sodium Chloride 1,000 ML IVC SCH ×2 (05:23→20:33)
[2019-01-24] MEDS: Levothyroxine 25 MCG TABLET PO SCH ×2 (05:49→07:54)
[2019-01-24 06:02] LABS: Basophils % 0.2 %; Eosinophils # 0.1 K/mcL (0.0-0.6); Eosinophils % 1.1 %; Hematocrit 29.1 % (37.5-50.1); Hemoglobin 9.3 g/dL (12.9-16.9); Immature Granulocytes % 0.9 % (0-4); Lymphocytes # 1.1 K/mcL (0.6-4.6); Lymphocytes % 17.7 %; Mean Corpuscular Hemoglobin 31.4 pg (28.0-33.3); Mean Corpuscular Volume 98.3 fL (83.0-100.0); Mean Platelet Volume 10.2 fL (9.4-12.4); Monocytes # 0.6 K/mcL (0.0-1.3); Neutrophils # 4.5 K/mcL (1.6-8.9); Platelet Count 181 K/mcL (140-400); Red Blood Count 2.96 M/mcL (4.19-5.50); Red Cell Distribution Width 14.8 % (11.5-14.5); Segmented Neutrophils % 71.1 %; White Blood Count 6.3 K/mcL (4.3-11.1)
[2019-01-24 06:23] LABS: Calcium 8.3 mg/dL (8.6-10.3); Phosphorous 2.2 mg/dL (2.7-4.5); Potassium 3.4 mEq/L (3.5-5.1)
[2019-01-24] MEDS: Loratadine 10 MG TABLET PO SCH (07:54)
[2019-01-24] MEDS: Cholecalciferol (D-3) 1,000 UNIT (25MCG) TABLET PO SCH (07:54)
[2019-01-24] MEDS: clonazePAM 1 MG TABLET PO SCH ×2 (07:54→20:32)
[2019-01-24] MEDS: *HR* Amiodarone 200 MG TABLET PO SCH (07:54)
[2019-01-24] MEDS: predniSONE 1 MG TABLET PO SCH (11:36)
[2019-01-24] MEDS ORDERED: Propofol 500 MG/50 ML INFUS..BTL ONE (12:41)
[2019-01-24] MEDS ORDERED: Lidocaine -MPF 2% 2 ML VIAL ONE (12:43)
[2019-01-24] MEDS ORDERED: *HR* PHENYLEPHRINE 1,000 MCG/10 ML SYRINGE IVP ONE (12:51)
[2019-01-24] MEDS ORDERED: 0.9 % Sodium Chloride 1,000 ML IVC SCH (13:15)
[2019-01-24] MEDS ORDERED: Ondansetron 4 MG/2 ML VIAL ONE (13:18)
[2019-01-24] MEDS: Mirtazapine 15 MG TABLET PO SCH (20:32)
[2019-01-25] MEDS: MetroNIDAZOLE 500 MG/100 ML 500 MG/100 ML BAG IVPB SCH ×3 (00:02→16:21)
[2019-01-25] MEDS: 0.9 % Sodium Chloride 1,000 ML IVC SCH (01:05)
[2019-01-25] MEDS: Levothyroxine 25 MCG TABLET PO SCH (05:23)
[2019-01-25 07:09] LABS: Hematocrit 24.5 % (37.5-50.1); Hemoglobin 7.9 g/dL (12.9-16.9)
[2019-01-25] MEDS: Cholecalciferol (D-3) 1,000 UNIT (25MCG) TABLET PO SCH (08:18)
[2019-01-25] MEDS: clonazePAM 1 MG TABLET PO SCH ×2 (08:18→21:51)
[2019-01-25] MEDS: predniSONE 1 MG TABLET PO SCH (08:18)
[2019-01-25] MEDS: Loratadine 10 MG TABLET PO SCH (08:18)
[2019-01-25] MEDS: *HR* Amiodarone 200 MG TABLET PO SCH (08:18)
[2019-01-25 08:25] LABS: Calcium 7.4 mg/dL (8.6-10.3)
[2019-01-25 08:49] LABS: Potassium 3.7 mEq/L (3.5-5.1)
[2019-01-25] MEDS ORDERED: 0.9 % Sodium Chloride 250 ML ONE ×2 (16:07→19:44)
[2019-01-25] MEDS: Mirtazapine 15 MG TABLET PO SCH (21:50)
[2019-01-26] MEDS: Levothyroxine 25 MCG TABLET PO SCH (06:03)
[2019-01-26] MEDS: clonazePAM 1 MG TABLET PO SCH (08:19)
[2019-01-26] MEDS: *HR* Amiodarone 200 MG TABLET PO SCH (08:19)
[2019-01-26] MEDS: Cholecalciferol (D-3) 1,000 UNIT (25MCG) TABLET PO SCH (08:19)
[2019-01-26] MEDS: predniSONE 1 MG TABLET PO SCH (08:19)
[2019-01-26] MEDS: Loratadine 10 MG TABLET PO SCH (08:19)
[2019-01-26 08:43] LABS: Hematocrit 31.6 % (37.5-50.1)
[2019-01-26 08:51] LABS: Hemoglobin 10.4 g/dL (12.9-16.9)
[2019-01-26] MEDS ORDERED: Pantoprazole 40 MG VIAL IVP SCH (09:00)
[2019-01-26 12:14] VITALS: BP 137/82
== END 2019-01-26 14:46 | disposition home or self-care (01) | DRG 378 ==
LOC: EMEROOARM 11:05 → SUATTDRO 17:13 → INTOOBSV 17:13 → 2NENU 17:13
PROVIDERS: ADMIT Student in an Organized Health Care Education/Training Program; ATTEND Internal Medicine